=== PATIENT | male | born 1940 | race Caucasian/White ===

== ENCOUNTER 2016-06-21 14:29 | Inpatient (IN) | payer MEDICARE, BC ==
[2016-06-21] MEDS ORDERED: SODIUM CHLORIDE 0.9% 1,000 ML IV STA (14:51)
--- NOTE | 2016-06-21 14:53 | ED ---
General Adult HPI - General Chief complaint: Shortness of Breath Stated complaint: Dr Rutherford/SOB/Heart Pt Time Seen by Provider: 06/21/16 14:51 Source: patient, RN notes reviewed, old records reviewed Mode of arrival: ambulatory Limitations: no limitations - History of Present Illness Initial comments: This is a 75-year-old male here for evaluation of shortness of breath. Patient has history of A. fib, no specific heart history. Patient coming in with progressive and worsening exertional dyspnea. Patient has evolved to the point where he is sitting up and sleeping in his recliner. He was waking up in the middle night severely short of breath and gasping for air. Patient systems are much worse with activity either going up the stairs or doing or carotid salves including his normal daily tasks of firing. Patient denies any specific chest pain, currently in bed he feels comfortable [place] visibly short of breath. No recent travel [place] sick contacts no leg or calf pain. - Related Data Home Medications Medication Instructions Recorded Confirmed ALPRAZolam [Xanax] 0.25 mg PO TID PRN 08/16/14 06/21/16 Flecainide Acetate [Tambocor] 100 mg PO BID 08/16/14 06/21/16 Simvastatin [Zocor] 40 mg PO HS 08/16/14 06/21/16 Warfarin [Coumadin] 5 mg PO SUTUTHSA 08/16/14 06/21/16 Ascorbic Acid [Vitamin C] 500 mg PO DAILY 02/01/15 06/21/16 Ca/D3/Mag/Zinc/[place]/Terrence/Mgbor 1 tab PO DAILY 02/01/15 06/21/16 [Caltrate 600+D3+Min Chew Tab] Cyanocobalamin [Vitamin B-12] 2,500 mcg PO DAILY 02/01/15 06/21/16 Multivitamin [Men's Multi-Vitamin] 1 tab PO DAILY 02/01/15 06/21/16 Omeprazole [PriLOSEC] 20 mg PO DAILY 02/01/15 06/21/16 Enalapril Maleate [Vasotec] 20 mg PO BID 06/21/16 06/21/16 Fish Oil 1400mg 1,400 mg PO HS 06/21/16 06/21/16 Warfarin [Coumadin] 2.5 mg PO MOWEFR 06/21/16 06/21/16 Allergies Allergy/AdvReac Type Severity Reaction Status Date / Time No Known Allergies Allergy Verified 06/21/16 15:00 Review of Systems ROS Statement: Those systems with pertinent positive or pertinent negative responses have been documented in the HPI. ROS Other: All systems not noted in ROS Statement are negative. Past Medical History Past Medical History: Atrial Fibrillation, Cancer, Heart Failure, Hyperlipidemia , Hypertension Additional Past Medical History / Comment(s): SOB. PROSTATE CA, HORMONE & RADIATION TX. RENAL CALCULI. CATARACTS. History of Any Multi-Drug Resistant Organisms: None Reported Past Surgical History: Appendectomy, Cardiac Ablation, Heart Catheterization Additional Past Surgical History / Comment(s): CARDIOVERSION X 2. PARTIAL AMPUTATION OF RIGHT POINTER FINGER. Past Anesthesia/Blood Transfusion Reactions: No Reported Reaction Past Psychological History: Anxiety Smoking Status: Former smoker Past Alcohol Use History: None Reported Past Drug Use History: None Reported - Past Family History Father Family Medical History: CVA/TIA General Exam Limitations: no limitations General appearance: alert, in no apparent distress, anxious Head exam: Present: atraumatic, normocephalic, normal inspection Eye exam: Present: normal appearance, PERRL, EOMI. Absent: scleral icterus, conjunctival injection, periorbital swelling ENT exam: Present: normal exam, mucous membranes moist Neck exam: Present: normal inspection. Absent: tenderness, meningismus, lymphadenopathy Respiratory exam: Present: normal lung sounds bilaterally, rales, decreased breath sounds, prolonged expiratory. Absent: respiratory distress, rhonchi, stridor Cardiovascular Exam: Present: regular rate, tachycardia, irregular rhythm, normal heart sounds. Absent: systolic murmur, diastolic murmur, rubs, gallop, clicks GI/Abdominal exam: Present: soft, normal bowel sounds. Absent: distended, tenderness, guarding, rebound, rigid Extremities exam: Present: normal inspection, full ROM, normal capillary refill. Absent: tenderness, pedal edema, joint swelling, calf tenderness Back exam: Present: normal inspection Neurological exam: Present: alert, oriented X3, CN II-XII intact Psychiatric exam: Present: normal affect, normal mood Skin exam: Present: warm, dry, intact, normal color. Absent: rash Course Vital Signs 06/21/16 06/21/16 06/21/16 14:33 15:37 16:07 Temperature 97.4 F L Pulse Rate 111 H 110 H 98 Respiratory 20 18 20 Rate Blood Pressure 162/87 127/96 141/72 O2 Sat by Pulse 93 L 98 97 Oximetry 06/21/16 16:21 Temperature Pulse Rate 83 Respiratory 20 Rate Blood Pressure O2 Sat by Pulse Oximetry - Reevaluation(s) Reevaluation #1: 06/21/16 16:32 Patient didn't readily discuss to be in A. fib with RVR, improved with rate control EKG Findings - EKG Comments: EKG Findings:: EKG shows A. fib with RVR rate 113 QRS 156, QTC 540 Medical Decision Making - Medical Decision Making 75 male here with multiple medical coronaries coming with A. fib with RVR, CHF and progressive shortness of breath and exertional dyspnea, pleural effusion on x-ray. Mildly elevated troponin, patient be admitted for evaluation for cardiopulmonary status, trending of troponins, telemetry and cardiac evaluation - Lab Data Result diagrams: 06/21/16 14:54 06/21/16 14:54 Lab Results 06/21/16 06/21/16 06/21/16 Range/Units 14:54 14:54 14:54 WBC 10.3 (3.8-10.6) k/uL RBC 4.38 (4.30-5.90) m/uL Hgb 12.6 L (13.0-17.5) gm/dL Hct 39.6 (39.0-53.0) % MCV 90.3 (80.0-100.0) fL MCH 28.8 (25.0-35.0) pg MCHC 31.9 (31.0-37.0) g/dL RDW 13.9 (11.5-15.5) % Plt Count 301 (150-450) k/uL Neutrophils % 80 % Lymphocytes % 9 % Monocytes % 9 % Eosinophils % 0 % Basophils % 0 % Neutrophils # 8.2 H (1.3-7.7) k/uL Lymphocytes # 0.9 L (1.0-4.8) k/uL Monocytes # 0.9 (0-1.0) k/uL Eosinophils # 0.0 (0-0.7) k/uL Basophils # 0.0 (0-0.2) k/uL Hypochromasia Slight Sodium 142 (137-145) mmol/L Potassium 4.5 (3.5-5.1) mmol/L Chloride 107 (98-107) mmol/L Carbon Dioxide 21 L (22-30) mmol/L Anion Gap 14 mmol/L BUN 25 H (9-20) mg/dL Creatinine 0.93 (0.66-1.25) mg/dL Est GFR (MDRD) Af Amer >60 (>60 ml/min/1.73 sqM) Est GFR (MDRD) Non-Af >60 (>60 ml/min/1.73 sqM) Glucose 103 H (74-99) mg/dL Calcium 9.3 (8.4-10.2) mg/dL Phosphorus 3.7 (2.5-4.5) mg/dL Magnesium 2.0 (1.6-2.3) mg/dL Total Bilirubin 1.2 (0.2-1.3) mg/dL AST 41 (17-59) U/L ALT 50 (21-72) U/L Alkaline Phosphatase 72 (38-126) U/L Total Creatine Kinase 77 (55-170) U/L CK-MB (CK-2) 2.8 H* (0.0-2.4) ng/mL CK-MB (CK-2) Rel Index 3.6 Troponin I 0.046 H* (0.000-0.034) ng/mL NT-Pro-B Natriuret Pep pg/mL Total Protein 7.2 (6.3-8.2) g/dL Albumin 3.9 (3.5-5.0) g/dL 06/21/16 Range/Units 14:54 WBC (3.8-10.6) k/uL RBC (4.30-5.90) m/uL Hgb (13.0-17.5) gm/dL Hct (39.0-53.0) % MCV (80.0-100.0) fL MCH (25.0-35.0) pg MCHC (31.0-37.0) g/dL RDW (11.5-15.5) % Plt Count (150-450) k/uL Neutrophils % % Lymphocytes % % Monocytes % % Eosinophils % % Basophils % % Neutrophils # (1.3-7.7) k/uL Lymphocytes # (1.0-4.8) k/uL Monocytes # (0-1.0) k/uL Eosinophils # (0-0.7) k/uL Basophils # (0-0.2) k/uL Hypochromasia Sodium (137-145) mmol/L Potassium (3.5-5.1) mmol/L Chloride (98-107) mmol/L Carbon Dioxide (22-30) mmol/L Anion Gap mmol/L BUN (9-20) mg/dL Creatinine (0.66-1.25) mg/dL Est GFR (MDRD) Af Amer (>60 ml/min/1.73 sqM) Est GFR (MDRD) Non-Af (>60 ml/min/1.73 sqM) Glucose (74-99) mg/dL Calcium (8.4-10.2) mg/dL Phosphorus (2.5-4.5) mg/dL Magnesium (1.6-2.3) mg/dL Total Bilirubin (0.2-1.3) mg/dL AST (17-59) U/L ALT (21-72) U/L Alkaline Phosphatase (38-126) U/L Total Creatine Kinase (55-170) U/L CK-MB (CK-2) (0.0-2.4) ng/mL CK-MB (CK-2) Rel Index Troponin I (0.000-0.034) ng/mL NT-Pro-B Natriuret Pep 7620 pg/mL Total Protein (6.3-8.2) g/dL Albumin (3.5-5.0) g/dL - Radiology Data Radiology results: report reviewed (Chest x-ray 2 view does show positive pleural effusion), image reviewed Critical Care Time Critical Care Time: Yes Total Critical Care Time: 31 Disposition Clinical Impression: Congestive heart failure, Acute pulmonary edema, Atrial fibrillation with RVR Disposition: ADMITTED IP TO THIS HOSP Condition: Fair Referrals: Sylvester Mckeon MD [Primary Care Provider] - 1-2 days
[2016-06-21 15:03] LABS: Basophils % (A) 0 %; CH 28.7; Eosinophils % (A) 0 %; HCT 39.6 % (39.0-53.0); HDW 3.01; HGB 12.6 gm/dL (13.0-17.5); Hypochromasia Slight; Luc % (Auto) 2; Lymphocytes # (A) 0.9 k/uL (1.0-4.8); Lymphocytes % (A) 9 %; MCH 28.8 pg (25.0-35.0); MCHC 31.9 g/dL (31.0-37.0); MCV 90.3 fL (80.0-100.0); Mean Platelet Volume 6.9; Monocytes # (A) 0.9 k/uL (0-1.0); Monocytes % (A) 9 %; Neutrophils # (A) 8.2 k/uL (1.3-7.7); Neutrophils % (A) 80 %; RBC 4.38 m/uL (4.30-5.90); RDW 13.9 % (11.5-15.5); WBC 10.3 k/uL (3.8-10.6); WBC (Perox) 10.54
[2016-06-21 15:16] LABS: INR 2.5 (<1.1); Partial Thromboplastin Time 27.3 sec (22.0-30.0); Prothrombin Time 24.1 sec (9.0-12.0)
--- NOTE | 2016-06-21 15:16 | XR ---
EXAMINATION TYPE: XR chest 2V DATE OF EXAM: 06/21/2016 3:10 PM COMPARISON: 03/24/2016 HISTORY: Weakness TECHNIQUE: Frontal and lateral views of the chest are obtained. FINDINGS: There is no heart failure nor confluent pneumonic infiltrate. There is mild coarsening of interstitial markings. There is old right posterior lateral rib fracture. There is very slight blunti ng of right costophrenic angle. IMPRESSION: Pulmonary fibrotic mild changes. There is a new small right pleural effusion compared to old exam. No gross heart failure.
[2016-06-21 15:18] LABS: ALT 50 U/L (21-72); AST 41 U/L (17-59); Alkaline Phosphatase 72 U/L (38-126); Anion Gap 14 mmol/L; Blood Urea Nitrogen 25 mg/dL (9-20); Calcium 9.3 mg/dL (8.4-10.2); Carbon Dioxide 21 mmol/L (22-30); Chloride 107 mmol/L (98-107); Glucose 103 mg/dL (74-99); Non-African American GFR(MDRD) >60 (>60 ml/min/1.73 sqM); Phosphorous 3.7 mg/dL (2.5-4.5); Potassium 4.5 mmol/L (3.5-5.1); Sodium 142 mmol/L (137-145); Total Bilirubin 1.2 mg/dL (0.2-1.3); Total Protein 7.2 g/dL (6.3-8.2)
[2016-06-21 15:50] LABS: Creatine Kinase MB 2.8 ng/mL (0.0-2.4); Troponin I 0.046 ng/mL (0.000-0.034)
[2016-06-21] MEDS ORDERED: DILTIAZEM 5 MG/ML 5 ML VIAL IVP STA (16:03)
[2016-06-21] MEDS ORDERED: FUROSEMIDE 10 MG/ML 4 ML VIAL IV STA (16:19)
[2016-06-21] MEDS ORDERED: ASPIRIN 325 MG TAB PO STA (16:19)
[2016-06-21] MEDS ORDERED: SODIUM CHLORIDE 0.9% 1,000 ML IV SCH (16:30)
[2016-06-21] MEDS ORDERED: WARFARIN 5 MG TAB PO SCH (18:00)
[2016-06-21 18:03] LABS: Appearance,Urine Clear (Clear); Bilirubin,Urine Negative (Negative); Glucose,Urine (UA) Negative (Negative); Ketones,Urine Trace (Negative); Leukocyte Esterase,Urine Negative (Negative); Nitrite,Urine Negative (Negative); PH, Urine 5.5 (5.0-8.0); Protein,Urine Negative (Negative); UA Billing (MACRO vs. MICRO) CHEM; Urobilinogen,Urine <2.0 mg/dL (<2.0)
[2016-06-21] MEDS: METOPROLOL TARTRATE 25 MG TAB PO SCH (20:19)
[2016-06-21] MEDS: FLECAINIDE 50 MG TAB PO SCH (20:19)
[2016-06-21] MEDS: ATORVASTATIN 20 MG TAB PO SCH (20:19)
[2016-06-21] MEDS: PSYLLIUM HUSK 100% 6 GM PACKET PO SCH (20:29)
[2016-06-21 21:25] LABS: Troponin I 0.057 ng/mL (0.000-0.034)
--- NOTE | 2016-06-21 21:56 | P.HPIM ---
History of Present Illness Chief complaint: Shortness of breath. History of present illness: The patient is a 75-year-old gentleman who presented today to the emergency room with increasing shortness of breath. He states it's been gradually getting worse for a while but over the past few days it's been becoming more problematic. Just getting up walking to his mailbox causing extreme shortness of breath along with ambulating through the house. He is having paroxysmal nocturnal dyspnea and orthopnea at night to the point where he got a recliner to sleep and so that he can breathe at night. He has denied any chest pain fever or chills or cough. Past medical history: Patient is followed by cardiology. Patient does have a history of paroxysmal atrial fibrillation and is on anticoagulation. Apparently a history of sick sinus syndrome. He does also have a history of mild to moderate aortic stenosis on previous echocardiograms. Echocardiogram from 2014 at least revealed a aortic stenosis gradient of 20 mm mercury with left atrial enlargement and ejection fraction of 60%. He has had previous cardioversion from atrial flutter to sinus rhythm and also has had ablation therapy I believe more recently. He has had a previous cardiac catheterization although I do not have the results but there is documentation for mild coronary artery disease and he has carotid duplex per cardiology on a regular basis for which she has right internal carotid artery stenosis. History of hypertension and hyperlipidemia. History of polyarthritis degenerative joint disease. History of cancer of the prostate followed by local urology. History of previous smoking and element of COPD. Previous surgical history: include finger surgery with amputation of the right index finger and appendectomy. Medications: No known ALLERGIES Home medications include his Coumadin 2.5 mg on Wednesdays and Fridays and 5 mg on all other days. Simvastatin 40 mg at at bedtime. Omeprazole 20 mg daily. Tambocor 100 mg twice a day Fish oil 1400 mg at at bedtime Enalapril 20 mg twice a day Vitamin B12 2500 g daily Calcium and vitamin D daily Xanax 0.25 3 times a day when necessary. Review of systems: Patient denies any unusual visual disturbances or headaches. No fever or chills or cough. No chest pain. No nausea vomiting or diarrhea. No new blood in his stool. Patient takes Metamucil with good results. No urinary symptomatology no hematuria. Patient has had some increase of bilateral lower leg edema especially in the calf muscle area. He states is improved since being in the hospital today. Family history: Patient has had a sister who of lung cancer. A brother with esophageal cancer. And a mother with pancreatic cancer. There is also history of coronary artery disease in the family. Social history: Patient is a former smoker. Denies any excessive alcohol usage. Patient does work as a [employer] but is mostly retired. Lives with his locally. Physical examination: Patient is sitting up in bed alert and oriented in no acute distress. Vital signs reveal a temperature of 97.3 and a pulse of 55 and slightly irregular. Pulse was up to 111 on presentation. Respirations are down to 16 and nonlabored. Blood pressure is 114/77 and he is 98% saturated on room air. Head and neck exam is unremarkable. Extraocular movements are intact. No carotid bruits or adenopathy. No definite JVD noted at this time. No thyromegaly. Lungs are generally clear although diminished at bases with scattered rales at the bases. Heart tones are regular without definitive murmur or rub is appreciated. Abdomen is obese but soft and nontender without organomegaly or masses. Rectal and scrotal exam deferred. Extremities do not reveal any pitting edema at this time. Neurologic exam reveals him to be alert and oriented in no acute distress. Cranial nerves are intact. No focal weakness noted. Laboratory: White count is 10.3 with a hemoglobin 12.6 and a platelet count of 301. INR is 2.5. Sodium is 142 with a potassium 4.5. BUN of 25 with creatinine 0.93 given him a GFR of greater than 60. Liver function tests were good. Troponin initially 0.046 going up to 0.057 on second determination. CK total was 77. Pro BNP 7620. Urinalysis clear. Chest x-ray revealed: some pulmonary fibrotic changes. Small right pleural effusion was noted. Possible mild but no gross heart failure. EKG on admission: Showed atrial fibrillation with a rapid ventricular response associated with a left anterior fascicular block and right bundle branch block. Possible septal infarct. Impressions: 1. Acute on chronic congestive heart failure with diastolic dysfunction associated also with atrial fibrillation and a rapid ventricular response on presentation. 2. History some element of aortic stenosis and need to rule out any contribution to #1 from valvular heart disease or atherosclerotic heart disease. 3. History of paroxysmal atrial fibrillation. Post ablation therapy. 4. History of sick sinus syndrome 5. History of hypertension 6. Hyperlipidemia 7. Previous smoking history/history COPD. 8. History of prostate cancer. 9. History of appendectomy. 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 Plans: IV Lasix has been initiated. Patient will have echocardiogram performed. Follow-up electrolytes to be done. Continue with Coumadin and other home medications at this time. Consult for cardiology to evaluate. Further recommendations and treatment pending clinical response and results of above is discussed with patient at bedside this evening. Past Medical History Past Medical History: Atrial Fibrillation, Cancer, Heart Failure, Hyperlipidemia , Hypertension Additional Past Medical History / Comment(s): SOB. PROSTATE CA, HORMONE & RADIATION TX. RENAL CALCULI. CATARACTS. History of Any Multi-Drug Resistant Organisms: None Reported Past Surgical History: Appendectomy, Cardiac Ablation, Heart Catheterization Additional Past Surgical History / Comment(s): CARDIOVERSION X 3. PARTIAL AMPUTATION OF RIGHT POINTER FINGER; colonoscpy Past Anesthesia/Blood Transfusion Reactions: No Reported Reaction Past Psychological History: Anxiety Smoking Status: Former smoker Past Alcohol Use History: None Reported Past Drug Use History: None Reported - Past Family History Brother(s) Additional Family Medical History / Comment(s): espohogeal ca Mother Additional Family Medical History / Comment(s): pancreatic ca Sister(s) Additional Family Medical History / Comment(s): sister lung ca Father Family Medical History: CVA/TIA Medications and Allergies Home Medications Medication Instructions Recorded Confirmed Type ALPRAZolam [Xanax] 0.25 mg PO TID PRN 08/16/14 06/21/16 History Flecainide Acetate [Tambocor] 100 mg PO BID 08/16/14 06/21/16 History Simvastatin [Zocor] 40 mg PO HS 08/16/14 06/21/16 History Warfarin [Coumadin] 5 mg PO SUTUTHSA 08/16/14 06/21/16 History Ascorbic Acid [Vitamin C] 500 mg PO DAILY 02/01/15 06/21/16 History Ca/D3/Mag/Zinc/[place]/Mgbor 1 tab PO DAILY 02/01/15 06/21/16 History [Caltrate 600+D3+Min Chew Tab] Cyanocobalamin [Vitamin B-12] 2,500 mcg PO DAILY 02/01/15 06/21/16 History Multivitamin [Men's Multi-Vitamin] 1 tab PO DAILY 02/01/15 06/21/16 History Omeprazole [PriLOSEC] 20 mg PO DAILY 02/01/15 06/21/16 History Enalapril Maleate [Vasotec] 20 mg PO BID 06/21/16 06/21/16 History Fish Oil 1400mg 1,400 mg PO HS 06/21/16 06/21/16 History Warfarin [Coumadin] 2.5 mg PO MOWEFR 06/21/16 06/21/16 History Allergies Allergy/AdvReac Type Severity Reaction Status Date / Time No Known Allergies Allergy Verified 06/21/16 15:00 Physical Exam Vitals: Vital Signs Temp Pulse Pulse Resp BP BP Pulse Ox 06/21/16 20:13 97.3 F L 55 L 16 114/77 98 06/21/16 18:22 97.2 F L 91 18 139/89 96 06/21/16 17:00 98 F 85 20 133/84 97 06/21/16 16:21 83 20 Intake and Output 06/21/16 06/21/16 06/21/16 06:59 14:59 22:59 Intake Total 318 Output Total 850 Balance -532 Intake: Oral 318 Output: Urine 850 Other: Voiding Method Toilet Urinal Weight 99.337 kg Patient Weight 06/22/16 06:59 Weight 99.337 kg Results CBC & Chem 7: 06/21/16 14:54 06/21/16 14:54 Labs: Abnormal Lab Results - Last 24 Hours (Table) 06/21/16 Range/Units 17:30 Urine Ketones Trace H (Negative) Thrombosis Risk Factor Assmnt - Choose All That Apply Each Factor Represents 1 point: Heart failure (<1month), Obesity (BMI >25) Each Risk Factor Represents 2 Points: Age 61-74 years Thrombosis Risk Factor Assessment Total Risk Factor Score: 4 Thrombosis Risk Factor Assessment Level: Moderate Risk
[2016-06-21] MEDS: ALPRAZolam 0.25 MG TAB PO PRN (23:01)
[2016-06-22 03:20] LABS: Anion Gap 10 mmol/L; Blood Urea Nitrogen 29 mg/dL (9-20); Calcium 9.1 mg/dL (8.4-10.2); Carbon Dioxide 27 mmol/L (22-30); Chloride 106 mmol/L (98-107); Glucose 113 mg/dL (74-99); Non-African American GFR(MDRD) 59 (>60 ml/min/1.73 sqM); Potassium 4.7 mmol/L (3.5-5.1); Sodium 143 mmol/L (137-145)
[2016-06-22 03:43] LABS: Creatine Kinase MB 1.4 ng/mL (0.0-2.4)
[2016-06-22 03:54] LABS: Troponin I 0.054 ng/mL (0.000-0.034)
[2016-06-22] MEDS ORDERED: FUROSEMIDE 10 MG/ML 4 ML VIAL IV SCH ×2 (06:00→21:00)
[2016-06-22 06:18] LABS: Glucose,Whole Blood 115 mg/dL (75-99)
[2016-06-22] MEDS: PANTOPRAZOLE 40 MG TABLET PO SCH (06:57)
--- NOTE | 2016-06-22 08:00 | P.PN ---
Progress Note - Text The patient is a 75-year-old gentleman who presented to the emergency room yesterday with increasing shortness of breath. He was found to be in acute on chronic congestive heart failure with history of previous diastolic dysfunction and also associated with atrial fibrillation and a rapid ventricular response on presentation. Patient has received IV Lasix and has had improvement in his symptomatology. Decrease shortness of breath and edema. Present vital signs reveal temperature 90.7 with a pulse of 86 irregular and respirations 16. Blood pressures have been down in the 90s with 94/70 and he is 96% saturated on room air. Head and neck exam unremarkable. Lungs are generally clear without wheezing or rales this morning. Abdomen obese but nontender. No edema. No focal neurological changes. Labs Sodium is 143 with a potassium 4.7. BUN of 29 with creatinine of 1.2. A GFR of 59. Blood sugars 113. Troponins elevated up to 0.057. TSH is mildly depressed 0.452. Patient did have about 3 L urinary output since presentation. Impressions and plans: Have decreased Lasix to 20 mg orally twice a day. Patient is having an echocardiogram. Consultation with cardiology today. Further recommendations pending clinical response and results of above.
[2016-06-22] MEDS: METOPROLOL TARTRATE 25 MG TAB PO SCH ×2 (08:27→20:29)
[2016-06-22] MEDS: FLECAINIDE 50 MG TAB PO SCH ×2 (08:27→20:30)
--- NOTE | 2016-06-22 08:37 | P.CRDCN ---
History of Present Illness Consult date: 06/22/16 Requesting physician: Sylvester Mckeon Consult reason: atrial fibrillation Chief complaint: Shortness of breath History of present illness: This is a pleasant 75-year-old gentleman who follows regularly with Dr. Karley Storm in the office. He has a known history of paroxysmal atrial fibrillation, hypertension, hyperlipidemia, patient also has had 2 prior cardioversions performed in the past, most recent one was performed in February 2015. He presents to the hospital with symptoms of exertional shortness of breath for the past couple of weeks, he also states that he has noticed some increase in his abdominal girth and bilateral leg swelling in the past few days. Positive dry hacking cough. Denies fever or chills. On presentation here patient was found to be in atrial fibrillation with a rapid ventricular response, right bundle branch block pattern. Chest x-ray revealed pulmonary fibrotic changes with a new small right pleural effusion. Laboratory data was reviewed, BNP level 7620. Troponin 0.046, 0.057, 0.054. Magnesium level II.0, potassium 4.5, free T4 1 0.4 and TSH 0.45. CBC normal. Patient does take Coumadin for anticoagulation, INR 2.5. He was initiated on IV Lasix in the emergency room, weight is down 1 kg from admission. At the time of my examination this morning, patient is lying flat in bed, denies any shortness of breath, continues to be in atrial fibrillation with a heart rate in the 80s. Past Medical History Past Medical History: Atrial Fibrillation, Cancer, Heart Failure, Hyperlipidemia , Hypertension Additional Past Medical History / Comment(s): SOB. PROSTATE CA, HORMONE & RADIATION TX. RENAL CALCULI. CATARACTS. History of Any Multi-Drug Resistant Organisms: None Reported Past Surgical History: Appendectomy, Cardiac Ablation, Heart Catheterization Additional Past Surgical History / Comment(s): CARDIOVERSION X 3. PARTIAL AMPUTATION OF RIGHT POINTER FINGER; colonoscpy Past Anesthesia/Blood Transfusion Reactions: No Reported Reaction Past Psychological History: Anxiety Smoking Status: Former smoker Past Alcohol Use History: None Reported Past Drug Use History: None Reported - Past Family History Brother(s) Additional Family Medical History / Comment(s): espohogeal ca Mother Additional Family Medical History / Comment(s): pancreatic ca Sister(s) Additional Family Medical History / Comment(s): sister lung ca Father Family Medical History: CVA/TIA Medications and Allergies Home Medications Medication Instructions Recorded Confirmed Type ALPRAZolam [Xanax] 0.25 mg PO TID PRN 08/16/14 06/21/16 History Flecainide Acetate [Tambocor] 100 mg PO BID 08/16/14 06/21/16 History Simvastatin [Zocor] 40 mg PO HS 08/16/14 06/21/16 History Warfarin [Coumadin] 5 mg PO SUTUTHSA 08/16/14 06/21/16 History Ascorbic Acid [Vitamin C] 500 mg PO DAILY 02/01/15 06/21/16 History Ca/D3/Mag/Zinc/[place]rence/Mgbor 1 tab PO DAILY 02/01/15 06/21/16 History [Caltrate 600+D3+Min Chew Tab] Cyanocobalamin [Vitamin B-12] 2,500 mcg PO DAILY 02/01/15 06/21/16 History Multivitamin [Men's Multi-Vitamin] 1 tab PO DAILY 02/01/15 06/21/16 History Omeprazole [PriLOSEC] 20 mg PO DAILY 02/01/15 06/21/16 History Fish Oil 1400mg 1,400 mg PO HS 06/21/16 06/21/16 History Warfarin [Coumadin] 2.5 mg PO MOWEFR 06/21/16 06/21/16 History Enalapril Maleate [Enalapril 10 mg PO DAILY 06/22/16 06/22/16 History Maleate] Allergies Allergy/AdvReac Type Severity Reaction Status Date / Time No Known Allergies Allergy Verified 06/21/16 15:00 Physical Exam Vitals: Vital Signs Temp Pulse Pulse Resp BP BP Pulse Ox 06/22/16 04:11 97 F L 86 16 94/70 96 06/22/16 00:00 62 16 93/69 100 06/21/16 20:13 97.3 F L 55 L 16 114/77 98 06/21/16 18:22 97.2 F L 91 18 139/89 96 06/21/16 17:00 98 F 85 20 133/84 97 06/21/16 16:21 83 20 Intake and Output 06/21/16 06/22/16 06/22/16 22:59 06:59 14:59 Intake Total 318 500 Output Total 1250 1000 700 Balance -932 -500 -700 Intake: Oral 318 500 Output: Urine 1250 1000 700 Other: Voiding Method Toilet Toilet Urinal Urinal Weight 99.337 kg 98 kg PHYSICAL EXAMINATION: HEENT: Head is atraumatic, normocephalic. Pupils equal, round. Neck is supple. There is no elevated jugular venous pressure. HEART EXAMINATION: Heart S1 and S2 irregular irregular systolic ejection murmur is heard. CHEST EXAMINATION: Lungs Reveal some fine expiratory wheezes with mild diminished air entry to the bases. ABDOMEN: Soft, nontender. Bowel sounds are heard. No organomegaly noted. EXTREMITIES: 2+ peripheral pulses with trace evidence of peripheral edema and no calf tenderness noted. NEUROLOGIC patient is awake, alert and oriented -3. . Results 06/21/16 14:54 06/23/16 06:40 Cardiac Enzymes 06/21/16 06/22/16 Range/Units 20:34 02:45 CK-MB (CK-2) 2.0 1.4 (0.0-2.4) ng/mL Troponin I 0.057 H* 0.054 H* (0.000-0.034) ng/mL Comprehensive Metabolic Panel 06/22/16 Range/Units 02:45 Sodium 143 (137-145) mmol/L Potassium 4.7 (3.5-5.1) mmol/L Chloride 106 (98-107) mmol/L Carbon Dioxide 27 (22-30) mmol/L BUN 29 H (9-20) mg/dL Creatinine 1.20 (0.66-1.25) mg/dL Glucose 113 H (74-99) mg/dL Calcium 9.1 (8.4-10.2) mg/dL Current Medications Generic Name Dose Route Start Last Admin Trade Name Freq PRN Reason Stop Dose Admin Alprazolam 0.25 mg 06/21/16 18:04 06/21/16 23:01 Xanax PO 0.25 mg TID PRN Administration Anxiety Aspirin 325 mg 06/22/16 16:00 Aspirin PO DAILY ANALY Atorvastatin Calcium 20 mg 06/21/16 21:00 06/21/16 20:19 Lipitor PO 20 mg HS ANALY Administration Flecainide Acetate 100 mg 06/21/16 21:00 06/21/16 20:19 Tambocor PO 100 mg BID ANALY Administration Furosemide 20 mg 06/22/16 09:00 Lasix PO BID@0900,1600 [facility] Sodium Chloride 1,000 mls @ 20 mls/hr 06/21/16 16:30 06/21/16 17:57 Saline 0.9% IV Not Given .Q24H [facility] Lisinopril 80 mg 06/22/16 09:00 Zestril PO DAILY [facility] Metoprolol Tartrate 25 mg 06/21/16 21:00 06/21/16 20:19 Lopressor PO 25 mg BID ANALY Administration Pantoprazole Sodium 40 mg 06/22/16 07:30 06/22/16 06:57 Protonix PO 40 mg [id number] ANALY Administration Psyllium Hydrophilic Mucilloid 6 gm 06/21/16 21:00 06/21/16 20:29 Metamucil PO 6 gm HS ANALY Administration Warfarin Sodium 2.5 mg 06/22/16 18:00 Coumadin PO MOWEFR [facility] Warfarin Sodium 5 mg 06/21/16 18:00 06/21/16 18:41 Coumadin PO 5 mg SUTUTHSA ANALY Administration Intake and Output 06/21/16 06/22/16 06/22/16 22:59 06:59 14:59 Intake Total 318 500 Output Total 1250 1000 700 Balance -932 -500 -700 Intake: Oral 318 500 Output: Urine 1250 1000 700 Other: Voiding Method Toilet Toilet Urinal Urinal Weight 99.337 kg 98 kg 06/22/16 02:45 EKG Interpretations (text) EKG shows atrial fibrillation with a right bundle branch block pattern Assessment and Plan Plan: Assessment and plan #1 atrial fibrillation with rapid ventricular response #2 history of paroxysmal atrial fibrillation with prior cardioversions, on Coumadin for anticoagulation, INR 2.5 #3 diastolic congestive heart failure acute on chronic #4 hypertension Number 5 hyperlipidemia #6 moderate aortic stenosis, most recent echocardiogram was performed in December 2014 which revealed mild to moderate aortic stenosis with an ejection fraction of 60%. Plan We will obtain an echocardiogram with Doppler study. Decrease aspirin 81 mg daily. Continue flecainide 100 mg by mouth twice a day along with metoprolol tartrate 25 mg one by mouth twice a day. Continue IV Lasix. He scheduled to undergo a LUISA and cardioversion. The risks and benefits were explained to the patient in detail. Further recommendations to follow. DNP note has been reviewed, I agree with a documented findings and plan of care. Patient was seen and examined.
[2016-06-22] MEDS ORDERED: LISINOPRIL 20 MG TAB PO SCH ×2 (09:00)
[2016-06-22] MEDS ORDERED: FUROSEMIDE 20 MG TAB PO SCH (09:00)
--- NOTE | 2016-06-22 09:50 | ECHOF ---
Referral Reason:CHF MEASUREMENTS -------- HEIGHT: 180.3 cm WEIGHT: 98.0 kg BP: IVSd: 1.3 cm (0.6 - 1.1) LVIDd: 5.8 cm (3.9 - 5.3) LVPWd: 1.3 cm (0.6 - 1.1) IVSs: 1.2 cm LVIDs: 5.5 cm LVPWs: 1.6 cm LAESV Index (A-L): 47.35 ml/m Ao Diam: 3.1 cm (2.0 - 3.7) AV Cusp: 1.2 cm (1.5 - 2.6) LA Diam: 3.9 cm (2.7 - 3.8) MV EXCURSION: 18.438 mm (> 18.000) MV EF SLOPE: 95 mm/s (70 - 150) EPSS: 2.0 cm AV maxP.09 mmHg AV meanP.07 mmHg AR PHT: 348 ms RAP: 5.00 mmHg RVSP: 36.33 mmHg FINDINGS -------- Atrial fibrillation. This was a technically good study. There is mild concentric left ventricular hypertrophy. There is severe global hypokinesis of LV . Overall left ventricular systolic function is moderately impaired with, an EF between 35 - 40 %. The right ventricle is normal in size and function. LA is severely dilated >40 ml/m2 The right atrium is normal in size. There is mild aortic regurgitation. There is moderate aortic stenosis present. Peak/mean gradient across the Aortic Valve is 35.09mmHg / 20.07mmHg. The mitral valve leaflets are mildly thickened. Moderate mitral regurgitation is present. Moderate tricuspid regurgitation present. The right ventricular systolic pressure, as measured by Doppler, is 36.33mmHg. Pulmonic valve appears structurally normal. The pericardium is normal. CONCLUSIONS -------- 1. Atrial fibrillation. 2. There is moderate aortic stenosis present. 3. Peak/mean gradient across the Aortic Valve is 35.09mmHg / 20.07mmHg. 4. The mitral valve leaflets are mildly thickened. 5. Moderate mitral regurgitation is present. 6. Moderate tricuspid regurgitation present. 7. The right ventricular systolic pressure, as measured by Doppler, is 36.33mmHg. 8. Pulmonic valve appears structurally normal. 9. The pericardium is normal. 10. This was a technically good study. 11. There is mild concentric left ventricular hypertrophy. 12. There is severe global hypokinesis of LV . 13. Overall left ventricular systolic function is moderately impaired with, an EF between 35 - 40 %. 14. The right ventricle is normal in size and function. 15. LA is severely dilated >40 ml/m2 16. The right atrium is normal in size. 17. There is mild aortic regurgitation. METALSMITH HELPER: Taryn Castro RDCS
[2016-06-22] MEDS: FUROSEMIDE 10 MG/ML 4 ML VIAL IV SCH ×2 (10:12→20:31)
[2016-06-22] MEDS: LISINOPRIL 10 MG TAB PO SCH (10:18)
[2016-06-22] MEDS: SODIUM CHLORIDE 0.9% 1,000 ML IV SCH (15:29)
[2016-06-22] MEDS ORDERED: ASPIRIN 325 MG TAB PO SCH (16:00)
[2016-06-22] MEDS ORDERED: WARFARIN 2.5 MG TAB PO SCH (18:00)
[2016-06-22] MEDS: ATORVASTATIN 20 MG TAB PO SCH (20:29)
[2016-06-22] MEDS: PSYLLIUM HUSK 100% 6 GM PACKET PO SCH (20:31)
[2016-06-23] MEDS: METOPROLOL TARTRATE 25 MG TAB PO SCH (06:32)
[2016-06-23] MEDS: LISINOPRIL 10 MG TAB PO SCH (06:32)
[2016-06-23] MEDS: PANTOPRAZOLE 40 MG TABLET PO SCH (06:32)
[2016-06-23] MEDS: FLECAINIDE 50 MG TAB PO SCH ×2 (06:32→21:17)
[2016-06-23] MEDS: ASPIRIN 81 MG CHEW PO SCH (06:32)
[2016-06-23 07:13] LABS: INR 3.5 (<1.1); Prothrombin Time 34.3 sec (9.0-12.0)
[2016-06-23 07:19] LABS: Anion Gap 12 mmol/L; Blood Urea Nitrogen 28 mg/dL (9-20); Calcium 9.2 mg/dL (8.4-10.2); Carbon Dioxide 29 mmol/L (22-30); Chloride 103 mmol/L (98-107); Glucose 99 mg/dL (74-99); Non-African American GFR(MDRD) >60 (>60 ml/min/1.73 sqM); Potassium 4.4 mmol/L (3.5-5.1); Sodium 144 mmol/L (137-145)
--- NOTE | 2016-06-23 07:56 | P.PN ---
Progress Note - Text Patient is a 75 and gentleman who presented to the emergency room 2 days previous with increasing shortness of breath and was found to be in acute on chronic congestive heart failure with diastolic dysfunction and atrial fibrillation and rapid ventricular response. He has had some diuresis and improvement in his symptoms with IV Lasix. This morning he denies any shortness of breath or chest pain. He does have a history of valvular heart disease and has been followed as an outpatient. Vital signs reveal temperature of 97 with a pulse of 78 and respirations 18. Blood pressure 135/75 and he is 96% saturated on room air. Lung and heart examination is clear. Abdomen is nontender. No unusual edema at this time. No neurological deficits. Input and output: He is basically has had negative outputs during his hospitalization and his weight has dropped a little over kilogram. Last shift he put out a liter of fluid. Labs reveal unremarkable electrolytes this morning with a potassium 4.4. BUN is 28 with creatinine 1.05 given him a GFR greater than 60. INR though was slightly elevated at 3.5. Impressions and plans: There is moderate aortic stenosis on echocardiogram. With ejection fraction of 35-40%. Cardiology is planning further evaluation today with transesophageal echo. Await results of their evaluation and further recommendations. This was discussed with patient at bedside. We'll hold Coumadin today and repeat INR in the morning.
[2016-06-23] MEDS ORDERED: LIDOCAINE 1% INJ 10MG/ML (20 ML MDV) ONE (08:37)
[2016-06-23] MEDS ORDERED: PROPOFOL 10 MG/ML 20 ML VIAL IV ONE (08:37)
[2016-06-23] MEDS ORDERED: ePHEDrine 50 MG/ML 1 ML AMP ONE (08:37)
[2016-06-23] MEDS: BENZOCAINE SPRAY 100 APPLIC/CAN TOPICAL ONE ×3 (08:42→09:13)
[2016-06-23] MEDS ORDERED: IV FLUID CONTINUATION 1,000 ML IV ONE ×2 (08:47)
[2016-06-23] MEDS ORDERED: LISINOPRIL 10 MG TAB PO SCH (09:00)
[2016-06-23] MEDS: FUROSEMIDE 10 MG/ML 4 ML VIAL IV SCH ×2 (09:44→21:18)
--- NOTE | 2016-06-23 09:55 | CE ---
DATE OF SERVICE: 06/23/2016 PROCEDURE PERFORMED: Cardioversion INDICATION: This is a pleasant 75-year-old gentleman who sees Dr. Shane Storm as an outpatient, who presented to the hospital with A. fib with RVR and underwent a LUISA which showed no evidence of left atrial appendage thrombus. COMPLICATIONS: None. LEVEL OF SEDATION: Moderate. PROCEDURE DESCRIPTION: After transesophageal echocardiogram was performed and left atrial appendage thrombus was ruled out, we proceeded to do the cardioversion. The patient cardioverted from A. fib to sinus mechanism using 360 joules with a third attempt. CONCLUSION: Successful cardioversion of atrial fibrillation into normal mechanism using 360 joules at a third attempt. POSTPROCEDURE MANAGEMENT: 1. The patient was noted to be bradycardic after the cardioversion. 2. I am going to decrease the dose of metoprolol to 12.5 mg p.o. b.i.d.
--- NOTE | 2016-06-23 10:03 | ECHOT ---
DATE OF SERVICE: 06/23/2016 PERFORMING PHYSICIAN: Alfa Quinones MD, roller skates assembler. PROCEDURE PERFORMED: Transesophageal echocardiogram. INDICATIONS: This is a pleasant 75-year-old gentleman who sees Dr. Shane Storm as an outpatient, who was admitted to the hospital with A. fib with RVR. The patient every time he goes to A. fib he goes to cardiomyopathy. The transesophageal echocardiogram to rule out any left atrial appendage thrombus before cardioversion. COMPLICATIONS: None. LEVEL OF SEDATION: Moderate. PROCEDURE DESCRIPTION: After obtaining an informed consent, the patient was brought to the transesophageal echocardiogram suite. The pulse oximetry and heart rate monitors were attached to the patient. The patient was turned in the left lateral position. Subsequently, deep sedation was performed with anesthesiologist in the room and using propofol. Subsequently, the transesophageal echocardiogram probe was advanced to the mid esophagus, where a 2-D echocardiogram images as well as color Doppler images of various cardiac structures were obtained. Particular attention was paid to the left atrial appendage. Subsequently, the transesophageal echocardiogram probe was advanced to the stomach when flexed to obtain transgastric views. Then it was brought to the ( ) position in the mid esophagus, The procedure was completed without any complication. FINDINGS: The left ventricle seems to be dilated. The left ventricular systolic function is severely impaired with an ejection fraction about 20% with global hypokinesia. The right ventricle appeared to be dilated as well. The left atrium and right atrium are mildly dilated. Left atrial appendage appeared to be free from any thrombus. The interatrial septum showed what seems to be possible patent page ovale, which was seen on color flow Doppler but not on contrast study. The aortic valve is thickened and calcified with evidence of moderate aortic stenosis. The mitral valve seems to be also thickened with moderate MR. There is moderate tricuspid regurgitation seen. CONCLUSION: 1. Normal left atrial appendage without any evidence of thrombus. 2. Mild biatrial enlargement. 3. Possible patent page ovale by color flow Doppler. 4. Severe cardiomyopathy with an ejection fraction of 25% and 30% and global hypokinesia. 5. Aortic sclerosis with moderate aortic stenosis. 6. Thickened mitral valve leaflets with moderate mitral regurgitation. 7. Thickened tricuspid valve leaflets with moderate tricuspid regurgitation. 8. Mild atherosclerosis plaque was seen in the descending thoracic aorta POSTPROCEDURE MANAGEMENT: Proceeding with a cardioversion.
[2016-06-23 11:57] VITALS: BMI 29.2
[2016-06-23 12:55] VITALS: RESP 18
[2016-06-23] MEDS: SODIUM CHLORIDE 0.9% 1,000 ML IV SCH (14:32)
[2016-06-23] MEDS: PSYLLIUM HUSK 100% 6 GM PACKET PO SCH (21:17)
[2016-06-23] MEDS: ATORVASTATIN 20 MG TAB PO SCH (21:17)
[2016-06-23] MEDS: METOPROLOL TARTRATE 12.5 MG TAB PO SCH (21:25)
[2016-06-24] MEDS: ALPRAZolam 0.25 MG TAB PO PRN (04:01)
[2016-06-24 04:20] VITALS: TEMP 97.1
[2016-06-24 06:28] LABS: INR 2.9 (<1.1); Prothrombin Time 28.4 sec (9.0-12.0)
[2016-06-24] MEDS: PANTOPRAZOLE 40 MG TABLET PO SCH (06:49)
--- NOTE | 2016-06-24 07:51 | P.PN ---
Progress Note - Text The patient is a 75-year-old gentleman who presented 3 days previous with increasing shortness of breath and acute on chronic congestive heart failure with diastolic and systolic dysfunction and was also found to be in atrial fibrillation with a rapid ventricular response. Patient has responded clinically to IV Lasix along with continuing his beta blockers and jonatan inhibitors. A transesophageal echo was performed and subsequently cardioversion yesterday. Today he denies any unusual shortness of breath or chest pain. Vital signs reveal temperature 97.1 with a pulse of 58 and respirations 18. Blood pressure 117/56 and he is 97% saturated on room air. Lung and heart exam was clear and regular this morning. No unusual edema. No focal neurological deficits. Laboratory: INR was 3.5 yesterday and is down to 2.9 this morning as yesterday's Coumadin was held. Impressions and plans: Will wait today to see if cardiology has any further plans. They will evaluate for patient's home medications to be continued and if any new medications for the patient. Patient will be seen in my office this coming Wednesday. Patient to have repeat INRs done as outpatient as he has done previously. Likely discharge home today if okay with cardiology as discussed with patient and nursing staff.
[2016-06-24] MEDS: METOPROLOL TARTRATE 12.5 MG TAB PO SCH (08:46)
[2016-06-24] MEDS: FLECAINIDE 50 MG TAB PO SCH (08:47)
[2016-06-24] MEDS: LISINOPRIL 10 MG TAB PO SCH (08:47)
[2016-06-24] MEDS: ASPIRIN 81 MG CHEW PO SCH (08:47)
[2016-06-24 09:16] VITALS: BP 127/59; PULSE 60
--- NOTE | 2016-06-24 10:34 | P.PN ---
Subjective Principal diagnosis: Sergio león This is a pleasant 75-year-old gentleman who follows regularly with Dr. Karley Storm in the office. He has a known history of paroxysmal atrial fibrillation, hypertension, hyperlipidemia, patient also has had 2 prior cardioversions performed in the past, most recent one was performed in February 2015. He presents to the hospital with symptoms of exertional shortness of breath for the past couple of weeks, he also states that he has noticed some increase in his abdominal girth and bilateral leg swelling in the past few days. Positive dry hacking cough. Denies fever or chills. On presentation here patient was found to be in atrial fibrillation with a rapid ventricular response, right bundle branch block pattern. Patient underwent a transesophageal echocardiographic study and elective cardioversion yesterday. He remains in normal sinus rhythm today. He has been up ambulating without any difficulty. Objective - Vital Signs Vital signs: Vital Signs Temp 97.1 F L 06/24/16 04:00 Pulse 60 06/24/16 08:00 Resp 18 06/24/16 08:00 BP 127/59 06/24/16 08:00 Pulse Ox 96 06/24/16 08:00 Intake & Output 06/23/16 06/24/16 06/24/16 18:59 06:59 18:59 Intake Total 780 Output Total 950 2850 Balance -170 -2850 Weight 98 kg 94.302 kg Intake: IV 600 Oral 180 Output: Urine 950 2850 Other: Voiding Method Toilet Urinal # Voids 1 - Exam PHYSICAL EXAMINATION: HEENT: Head is atraumatic, normocephalic. Pupils equal, round. Neck is supple. There is no elevated jugular venous pressure. HEART EXAMINATION: Heart S1 and S2 normal systolic ejection murmur is heard. CHEST EXAMINATION: Lungs Reveal some fine expiratory wheezes with mild diminished air entry to the bases. ABDOMEN: Soft, nontender. Bowel sounds are heard. No organomegaly noted. EXTREMITIES: 2+ peripheral pulses with trace evidence of peripheral edema and no calf tenderness noted. NEUROLOGIC patient is awake, alert and oriented -3. - Labs CBC & Chem 7: 06/21/16 14:54 06/23/16 06:40 Labs: Abnormal Lab Results - Last 24 Hours (Table) 06/24/16 Range/Units 05:27 PT 28.4 H (9.0-12.0) sec Assessment and Plan Plan: Assessment and plan #1 atrial fibrillation, paroxysmal, with rapid ventricular response #2 history of paroxysmal atrial fibrillation with prior cardioversions, on Coumadin for anticoagulation #3 diastolic congestive heart failure acute on chronic #4 hypertension # 5 hyperlipidemia #6 moderate aortic stenosis, most recent echocardiogram was performed in December 2014 which revealed mild to moderate aortic stenosis with an ejection fraction of 60%. #7 status post transesophageal echocardiographic study with elective cardioversion Plan Patient may be able to be discharged home today. Follow-up appointment will be made with Dr. Karley Storm in the office post discharge. DNP note has been reviewed, I agree with a documented findings and plan of care. Patient was seen and examined.
[2016-06-24] MEDS: FUROSEMIDE 10 MG/ML 4 ML VIAL IV SCH (10:56)
--- NOTE | 2016-06-25 10:35 | DS ---
DATE OF ADMISSION: 06/21/2016 DATE OF DISCHARGE: 06/24/2016 Mr. Bazan presented to the emergency room on June 21. He is a 75-year-old gentleman. He had been having increasing shortness of breath, dyspnea on exertion, PND, increase edema in the lower extremities and calf areas, was found on presentation to have a paroxysmal atrial fibrillation with a rapid ventricular response. Patient has had a past history of atrial fibrillation, having undergone cardioversion twice in the past and he does have underlying heart disease with hypertension and hyperlipidemia. Patient was treated with IV Lasix. Initial laboratory values revealed a white count of 10.3 with hemoglobin 12.6 and a platelet count of 301. BUN was 23 with creatinine 0.93, giving a GFR greater than 60, his liver function testing good. He is on Coumadin and INR was 2.5. Chest x-ray showed pulmonary fibrotic changes, small right pleural effusion and what appeared to be some element of congestive heart failure. EKG showed the atrial fibrillation with rapid ventricular response, also left anterior and right bundle branch block pattern. Troponin values initially 0.046 going up to 0.057. CK was 77. BNP was 7620. Once again, patient did diurese with Lasix. He was seen by Cardiology and is followed by them as an outpatient. He underwent transesophageal echocardiogram, report of which did not show any left atrial thrombus. The left ventricle was dilated. He did have severe cardiomyopathy with ejection fraction of 25% to 30% and global hypokinesis, aortic sclerosis with moderate aortic stenosis, mild biatrial enlargement. Patient underwent cardioversion subsequently and converted to sinus rhythm with 360 joules with a third attempt. He did have some mild bradycardia post-conversion. At this point, though, his symptomatology improved the following day. Plans are to discharge to home. Medications will include his: 1. Aspirin 81 mg daily. 2. Metoprolol 12.5 twice a day. 3. Xanax 0.25 three times a day p.r.n. for anxiety. 4. Vitamin C, he takes 500 mg. 5. Caltrate 600 calcium and vitamin D chewable daily. 6. Vitamin B12 two hundred, fifty mcg daily. 7. Enalapril 10 mg daily. 8. Fish oil 1400 mg once a day at bedtime. 9. Flecainide 100 mg twice a day. 10. He takes a multiple vitamin daily. 11. Omeprazole 20 mg daily. 12. Zocor 40 mg at bedtime. 13. Warfarin 2.5 mg on Wednesday, Wednesday and Wednesday and 5 mg all other days. He does get his INR's checked at cardiology and was recommended to have it checked next week. FINAL DISCHARGE DIAGNOSES: 1. Acute congestive heart failure with systolic dysfunction, also associated with paroxysmal atrial tachycardia with a rapid ventricular response on presentation requiring transesophageal echo and cardioversion performed on this admission. 2. Patient also has underlying hypertension. 3. Hyperlipidemia. 4. Polyarthritis with degenerative joint disease. 5. History of prostate cancer, followed by local urologist. 6. History of previous smoking and element of chronic obstructive pulmonary disease. 7. Previous surgical history that includes a previous amputation of the right index finger and amputation in the past. At this point, once again follow up with myself during the week in the next few days. Follow up with Dr. Shane Storm over a 5 to 7 day period. Activities as tolerated without any heavy exertion or lifting type activities. Call the office if any concerns or problems or return to the emergency room if symptoms worsen. GAMA
== END 2016-06-24 12:01 | disposition home or self-care (01) | DRG 308 ==
LOC: EC 14:29 → 6SEL 16:18
PROVIDERS: ADMIT Internal Medicine; ATTEND Internal Medicine
PROC: 5A2204Z Restoration of Cardiac Rhythm, Single (ICD-10-PCS; principal; 2016-06-23 08:30)
DX: I48.0 Paroxysmal atrial fibrillation (principal); I50.23 Acute on chronic systolic (congestive) heart failure; I42.9 Cardiomyopathy, unspecified; I65.21 Occlusion and stenosis of right carotid artery; J44.9 Chronic obstructive pulmonary disease, unspecified; I11.0 Hypertensive heart disease with heart failure; I47.1 Supraventricular tachycardia; E66.9 Obesity, unspecified; I35.0 Nonrheumatic aortic (valve) stenosis; E78.5 Hyperlipidemia, unspecified; F41.9 Anxiety disorder, unspecified; I25.10 Atherosclerotic heart disease of native coronary artery without angina pectoris; I45.10 Unspecified right bundle-branch block; I70.0 Atherosclerosis of aorta; M13.0 Polyarthritis, unspecified; H26.9 Unspecified cataract; Z79.01 Long term (current) use of anticoagulants; Z79.899 Other long term (current) drug therapy; Z85.46 Personal history of malignant neoplasm of prostate; Z87.891 Personal history of nicotine dependence
CPT/HCPCS: 36415; 71020; 80048; 80053; 81003; 82550; 82553; 83735; 83880; 84100; 84439; 84443; 84484; 85025; 85610; 85730; 87086; 92960; 93005; 93306; 93312; 93320; 93325; 96374; 96375; 99152; 99291

== ENCOUNTER → 2018-04-27 | Outpatient (CLI) | payer MEDICARE, BC ==
[2018-04-27 10:51] LABS: Blood Urea Nitrogen 23 mg/dL (9-20)
--- NOTE | 2018-04-27 12:22 | CT ---
EXAMINATION TYPE: CT chest w con DATE OF EXAM: 04/27/2018 COMPARISON: Chest x-ray 04/14/2018 HISTORY: Follow up lung nodule. No complaints at time of scan CT DLP: 564.9 mGycm, Automated exposure control for dose reduction was used. CONTRAST: Performed injected with 100 mL of Isovue 300. TECHNIQUE: Axial images were obtained at 5 mm thick sections. Reconstructed images are reviewed on [employer] computer in the coronal plane. FINDINGS: Portion of the thyroid visualized is normal. No suspicious lung nodules or focal infiltrates are present. Attention is paid to the right lower rishi g field corresponding to the findings on the chest x-ray. There may be calcification within the costo chondral cartilage which may account for this finding. This could be a summation density with a vesse ls seen posteriorly, series 4 image 45. A suspicious nodule is not identified on the chest CT. No enlarged mediastinal or hilar adenopathy is evident. Scattered small lymph nodes are present. Th e ascending aorta diameter at the level of the main pulmonary artery is 3.6 cm. The main pulmonary a rtery diameter at the bifurcation is 3.[address] sections are obtained through the upper abdomen. Pancreas appears atrophic. No suspicious acute changes are evident. IMPRESSIONS: 1. No suspicious changes to correspond to density on the chest x-ray. 2. Normal CT chest.
== END | disposition home or self-care (01) ==
LOC: RADCTMAIN 09:34
PROVIDERS: ATTEND Internal Medicine
DX: R91.1 Solitary pulmonary nodule (principal)
CPT/HCPCS: 82565; 84520; 71260; 36415; Q9967

== ENCOUNTER → 2019-03-28 | Outpatient (CLI) | payer MEDICARE, BC ==
--- NOTE | 2019-03-28 14:31 | XR ---
Right knee HISTORY: Patellar fracture 4 views of the right knee No comparisons There is joint space loss with subchondral sclerosis and lucency, marginal spurring especially in the medial compartment. Suprapatellar increased density compatible joint effusion. Spurring also present at the patellofemoral joint. Bone mineralization is reduced. Mild varus deformity at the knee. Lucen cy present through the patella medially, no definite periostitis. There is soft tissue swelling. IMPRESSION: Patellar fracture, osteoarthritis.
== END | disposition home or self-care (01) ==
LOC: RADXRMAIN 14:02
PROVIDERS: ATTEND Orthopaedic Surgery
DX: S82.001D Unspecified fracture of right patella, subsequent encounter for closed fracture with routine healing (principal); M17.11 Unilateral primary osteoarthritis, right knee

== ENCOUNTER → 2021-02-20 | Outpatient (CLI) | payer MEDICARE, BC ==
[2021-02-20 09:56] LABS: Appearance,Urine Clear (Clear); Bilirubin,Urine Negative (Negative); Blood,Urine Negative (Negative); Color,Urine Yellow; Glucose,Urine (UA) Negative (Negative); Hyaline Casts,Urine 4 /lpf (0-2); Ketones,Urine Negative (Negative); Leukocyte Esterase,Urine Negative (Negative); Mucus,Urine Moderate /hpf; Nitrite,Urine Negative (Negative); Protein,Urine 1+ (Negative); RBC,Urine 9 /hpf (0-5); Specific Gravity,Urine 1.023 (1.001-1.035); Urobilinogen,Urine <2.0 mg/dL (<2.0); WBC,Urine 1 /hpf (0-5)
[2021-02-20 10:53] LABS: INR 2.1 (<1.2); Partial Thromboplastin Time 30.5 sec (22.0-30.0); Prothrombin Time 20.3 sec (9.0-12.0)
[2021-02-20 10:58] LABS: ALT 20 U/L (4-49); AST 29 U/L (17-59); African American GFR (CKD) >90 (>60 ml/min/1.73 sqM); Albumin 3.8 g/dL (3.5-5.0); Albumin/Globulin Ratio 1.1; Alkaline Phosphatase 87 U/L (38-126); Anion Gap 9 mmol/L; Bilirubin,Unconjugated 0.4 mg/dL (0.0-1.1); Blood Urea Nitrogen 17 mg/dL (9-20); Calcium 9.3 mg/dL (8.4-10.2); Carbon Dioxide 29 mmol/L (22-30); Chloride 103 mmol/L (98-107); Globulin 3.4 g/dL; Glucose 109 mg/dL (74-99); Magnesium 2.3 mg/dL (1.6-2.3); Non-African American GFR(CKD) 88 (>60 ml/min/1.73 sqM); Potassium 4.4 mmol/L (3.5-5.1); Sodium 141 mmol/L (137-145); Total Bilirubin 0.5 mg/dL (0.2-1.3); Total Protein 7.2 g/dL (6.3-8.2)
--- NOTE | 2021-02-20 13:30 | CT ---
EXAMINATION TYPE: CT TAVR Planning DATE OF EXAM: 02/20/2021 HISTORY: Abdominal pain and chest pain. TAVR planning. CT DLP: 2185 mGycm Automated Exposure Control for Dose Reduction was Utilized. CONTRAST: CT scan of the chest, abdomen and pelvis is performed with IV Contrast, patient injected with 125 mL of Isovue 370. COMPARISON: Outside CTA chest January 23, 2021 TECHNIQUE: Helical imaging obtained through the chest, abdomen and pelvis during arterial phase aleta davon administration of radiographic contrast intravenously. FINDINGS: See report from [facility] regarding preprocedural planning CHEST: Lower Neck and Thyroid: No significant findings Lungs: No significant findings Central Airway: No significant findings Pleura: No significant findings Pulmonary Arteries: No significant findings Heart and Pericardium: Mild cardiomegaly. Moderate left atrial dilatation. Mild to moderate calcifica tion at level of the aortic valve. Dual lead pacemaker with leads terminating in right atrium and rig ht ventricle. Lymph Nodes: Scattered prominent but subcentimeter mediastinal lymph nodes Mediastinum & Esophagus: No significant findings Other: Flame shaped subareolar gynecomastia bilaterally. ABDOMEN/PELVIS: Please note arterial phase of the imaging limits detailed evaluation of the solid abdominal organs. Liver: No significant findings Spleen: No significant findings Kidneys: No significant findings Adrenal Glands: No significant findings Pancreas: Mild to moderate generalized fat replaced atrophy Gallbladder: No significant findings Bowel and Mesentery: Scattered distal colonic diverticula Lymph Nodes: No significant findings Urinary Bladder: No significant findings Pelvic Organs: There are 3 gold therapy seeds in normal size prostate gland. Other: No significant findings Osseous structures: Straightening of the thoracolumbar spine on sagittal images. Multilevel disc spac e narrowing greatest at L2-L3 through the L4-L5 levels. Prominent anterior spurring L2-L3 level. Mode rate to severe axial joint space loss in both hips IMPRESSION: As above. No significant incidental finding noted.
--- NOTE | 2021-02-20 14:08 | US ---
EXAMINATION TYPE: US carotid duplex BILAT DATE OF EXAM: 02/20/2021 COMPARISON: NONE CLINICAL HISTORY: I35.1 Nonrheumatic aortic (valve) insufficiency. TVAR pre testing, no h/o stroke, l arge habitus EXAM MEASUREMENTS: RIGHT: Peak Systolic Velocity (PSV) cm/sec ----- Right CCA: 79.9 ----- Right ICA: 162.7 ----- Right ECA: 72.1 ICA/CCA ratio: 2.0 RIGHT: End Diastole cm/sec ----- Right CCA: 11.9 ----- Right ICA: 70.1 ----- Right ECA: 11.0 LEFT: Peak Systolic Velocity (PSV) cm/sec ----- Left CCA: 69.8 ----- Left ICA: 135.4 ----- Left ECA: 43.7 ICA/CCA ratio: 1.9 LEFT: End Diastole cm/sec ----- Left CCA: 18.3 ----- Left ICA: 46.1 ----- Left ECA: 6.3 VERTEBRALS (direction of flow): Right Vertebral: Antegrade Left Vertebral: Antegrade Rhythm: Arrhythmia Very hard patient to scan due to habitus and heavy breathing. Heterogenous plaque bilateral bulbs. Originally did not see flow within mid/dist Right ICA, but after further interrogation, was able to d oppler mid and dist rt ica and noted increased velocities at mid level. Grayscale, color Doppler, spectral Doppler imaging performed of the carotid arteries. Waveform analys is shows elevated peak systolic velocity in the proximal internal carotid artery on the right, ICA to CCA ratio is elevated, elevated end-diastolic velocity. There is spectral broadening, loss of the sy stolic window. 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 Arrhythmia is noted incidentally. Possible mild stenosis also of the internal carotid ar omid in the left. Consider MRA or CTA for better evaluation. Criteria for Assigning % of Stenosis / Diameter reduction (Estimation based on the indirect measurements of the internal carotid artery velocities (ICA PSV). 1. Normal (no stenosis)=ICA PSV < 125 cm/s: ratio < 2.0: ICA EDV<40 cm/s. 2. Less than 50% stenosis=ICA PSV < 125 cm/s: ratio < 2.0: ICA EDV<40 cm/s. 3. 50 to 69% stenosis=ICA PSV of 125 to 230 cm/s: ration 2.0 ? 4.0: ICA EDV 40-100 cm/s. 4. Greater than 70% stenosis to near occlusion= ICA PSV > 230 cm/s: ratio > 4.0: ICA EDV > 100 cm/s. 5. Near occlusion= ICA PSV velocities may be low or undetectable: variable ratio and ICA EDV. 6. Total occlusion=unable to detect flow.
[2021-02-20 15:02] LABS: Basophils # (A) 0.07 X 10*3/uL (0.00-0.10); Basophils % (A) 0.9 %; Eosinophils # (A) 0.34 X 10*3/uL (0.04-0.35); Eosinophils % (A) 4.3 %; HGB 13.1 g/dL (13.0-17.0); Lymphocytes # (A) 0.97 X 10*3/uL (0.90-5.00); Lymphocytes % (A) 12.3 %; MCH 30.2 pg (27.0-32.0); MCV 94.5 fL (80.0-97.0); Mean Platelet Volume 10.1 fL (9.5-12.2); Monocytes # (A) 1.09 X 10*3/uL (0.20-1.00); Monocytes % (A) 13.8 %; Neutrophils # (A) 5.38 X 10*3/uL (1.80-7.70); Neutrophils % (A) 68.3 %; Platelet Count 217 X 10*3/uL (140-440); RBC 4.34 X 10*6/uL (4.40-5.60); RDW 13.3 % (11.5-14.5); WBC 7.88 X 10*3/uL (4.50-10.00)
[2021-02-20 16:38] LABS: Hemoglobin A1C 6.3 % (4.0-6.0)
[2021-02-21 02:50] LABS: Chol/HDL Ratio 3.38; Cholesterol 132 mg/dL (0-200); LDL Cholesterol,Calculated 74.2 mg/dL (0.0-131.0)
== END | disposition home or self-care (01) ==
LOC: LABWHC1 09:13
PROVIDERS: ATTEND Thoracic Surgery (Cardiothoracic Vascular Surgery)
DX: Z01.810 Encounter for preprocedural cardiovascular examination (principal); I65.21 Occlusion and stenosis of right carotid artery; I35.1 Nonrheumatic aortic (valve) insufficiency; E87.8 Other disorders of electrolyte and fluid balance, not elsewhere classified; E07.9 Disorder of thyroid, unspecified; R35.0 Frequency of micturition; I35.0 Nonrheumatic aortic (valve) stenosis; E11.9 Type 2 diabetes mellitus without complications; N28.9 Disorder of kidney and ureter, unspecified; E78.5 Hyperlipidemia, unspecified; I45.10 Unspecified right bundle-branch block; I48.91 Unspecified atrial fibrillation; I44.4 Left anterior fascicular block; I45.2 Bifascicular block; R94.31 Abnormal electrocardiogram [ECG] [EKG]; R58 Hemorrhage, not elsewhere classified; Z79.899 Other long term (current) drug therapy
CPT/HCPCS: 94150; 83880; 80061; 80053; 84443; 82248; 83735; 85025; 85610; 85730; 81001; 87086; 83036; 93880; 71275; 74174; 93005; 36415; Q9967

== ENCOUNTER → 2021-08-14 | Outpatient (CLI) | payer MEDICARE, BC ==
--- NOTE | 2021-08-14 17:00 | ECHOF ---
Referral Reason:I35.8 AORTIC VALVE DISORDERS, I35.1 MEASUREMENTS -------- HEIGHT: 182.9 cm WEIGHT: 102.1 kg BP: RVIDd: 4.6 cm (< 3.3) IVSd: 1.5 cm (0.6 - 1.1) LVIDd: 5.7 cm (3.9 - 5.3) LVPWd: 1.7 cm (0.6 - 1.1) IVSs: 1.7 cm LVIDs: 4.6 cm LVPWs: 1.7 cm LA Diam: 5.4 cm (2.7 - 3.8) LAESV Index (A-L): 54.74 ml/m Ao Diam: 3.5 cm (2.0 - 3.7) AV Cusp: 0.9 cm (1.5 - 2.6) LA Diam: 6.1 cm (2.7 - 3.8) MV EXCURSION: 25.163 mm (> 18.000) MV EF SLOPE: 53 mm/s (70 - 150) EPSS: 1.4 cm AV maxP.27 mmHg AV meanP.23 mmHg AR PHT: 691 ms RAP: 5.00 mmHg RVSP: 39.88 mmHg FINDINGS -------- Atrial fibrillation. Paced rhythm. This was a technically good study. The left ventricular size is normal. There is mild concentric left ventricular hypertrophy. Overa ll left ventricular systolic function is mildly impaired with, an EF between 45 - 50 %. The right ventricle is normal in size. LA is severely dilated >40 ml/m2 The right atrial size is normal. There is mild aortic regurgitation. There is moderate aortic stenosis present. Peak/mean gradient across the Aortic Valve is 43.27mmHg / 26.23mmHg. Mild mitral annular calcification present. Mild mitral regurgitation is present. Mild tricuspid regurgitation present. There is mild pulmonary hypertension. The right ventricular systolic pressure, as measured by Doppler, is 39.88mmHg. Trace/mild (physiologic) pulmonic regurgitation. There is no pericardial effusion. CONCLUSIONS -------- 1. The left ventricular size is normal. 2. There is mild concentric left ventricular hypertrophy. 3. Overall left ventricular systolic function is mildly impaired with, an EF between 45 - 50 %. 4. The right ventricle is normal in size. 5. LA is severely dilated >40 ml/m2 6. The right atrial size is normal. 7. There is mild aortic regurgitation. 8. There is moderate aortic stenosis present. 9. Peak/mean gradient across the Aortic Valve is 43.27mmHg / 26.23mmHg. 10. Mild mitral annular calcification present. 11. Mild mitral regurgitation is present. 12. Mild tricuspid regurgitation present. 13. There is mild pulmonary hypertension. 14. The right ventricular systolic pressure, as measured by Doppler, is 39.88mmHg. 15. Trace/mild (physiologic) pulmonic regurgitation. 16. There is no pericardial effusion. FULL SERVICE VENDING DRIVER: Jenny Gordon RDCS
== END | disposition home or self-care (01) ==
LOC: RADECHMAIN 13:36
PROVIDERS: ATTEND Thoracic Surgery (Cardiothoracic Vascular Surgery)
DX: I08.8 Other rheumatic multiple valve diseases (principal); I27.20 Pulmonary hypertension, unspecified
CPT/HCPCS: 93306

== ENCOUNTER → 2023-06-11 | Day surgery (SDC) | payer MEDICARE, BC ==
[~2023-06-11] MED LIST: ALPRAZolam 0.25 MG TAB PO PRN; ALPRAZolam 0.5 MG TAB PO PRN; AMIODARONE 200 MG TAB PO STA; ASPIRIN 325 MG TAB PO ONE; BENZOCAINE SPRAY 1 CAN MUCOUS MEM ONE; HEPARIN SODIUM 1,000 UN/ML (10ML VL) IV ONE; HEPARIN SODIUM,PORCINE (1 ML) 2,500 UNIT in SODIUM CHLORIDE 0.9% 250 ML IRRIGATION PRN; HEPARIN SODIUM,PORCINE 10,000 UNIT in SODIUM CHLORIDE 0.9% 1,000 ML IRRIGATION PRN; IOPAMIDOL-370 100ML BTL INJ ONE; IV FLUID CONTINUATION 1,000 ML IV ONE; LIDOCAINE 1% INJ 10MG/ML (5 ML VIAL-PF) SQ ONE; METOPROLOL TARTRATE 50 MG TAB PO STA; MIDAZOLAM 2 MG/2 ML VIAL IVP ONE; NITROGLYCERIN SL TABS 0.4 MG TAB SUBLINGUAL PRN; SODIUM CHLORIDE 0.9% 1,000 ML in EMPTY BAG 1 BAG IV SCH; VERAPAMIL 2.5 MG/ML 2 ML AMP ONE; WARFARIN 7.5 MG TAB PO ONE; fentaNYL (PF) 50 MCG/ML 2 ML AMP IVP ONE; fentaNYL (PF) 50 MCG/ML 2 ML AMP ONE
[2023-06-11 08:43] LABS: Anisocytosis Slight; Basophils # (A) 0.1 k/uL (0-0.2); Basophils % (A) 1 %; Eosinophils # (A) 0.4 k/uL (0-0.7); Eosinophils % (A) 4 %; HCT 39.9 % (39.0-53.0); HGB 12.2 gm/dL (13.0-17.5); Hypochromasia Marked; Lymphocytes # (A) 1.7 k/uL (1.0-4.8); Lymphocytes % (A) 17 %; MCH 24.3 pg (25.0-35.0); MCHC 30.6 g/dL (31.0-37.0); MCV 79.5 fL (80.0-100.0); Mean Platelet Volume 7.5; Microcytosis Slight; Monocytes # (A) 1.1 k/uL (0-1.0); Monocytes % (A) 11 %; Neutrophils # (A) 6.5 k/uL (1.3-7.7); Neutrophils % (A) 64 %; Platelet Count 369 k/uL (150-450); RBC 5.03 m/uL (4.30-5.90); RDW 16.5 % (11.5-15.5); WBC 10.1 k/uL (3.8-10.6)
[2023-06-11 08:52] LABS: INR 1.2 (<1.2); Prothrombin Time 12.3 sec (10.0-12.5)
[2023-06-11 09:06] VITALS: RESP 16; TEMP 98.4
--- NOTE | 2023-06-11 12:35 | CC ---
CARDIAC CATHETERIZATION REPORT PROCEDURE PERFORMED: Coronary angiography. PERFORMED BY: Dr. Shane Storm. ANESTHESIA: Moderate conscious sedation time was 17 minutes. The patient was administered fentanyl and Versed during his transesophageal echo, which preceded this procedure, but he was not given any additional anesthesia, but his oxygen saturation, hemodynamics, and EKG were monitored closely. CLINICAL INFORMATION: Mr. Breezy Bazan is an 82-year-old gentleman with a history of hypertension, hyperlipidemia, chronic persistent atrial fibrillation with sick sinus syndrome and a dual-chamber permanent pacemaker. He also has a metastatic prostate CA, for which he is on hormone therapy and the disease is very stable. He was evaluated. He has significant aortic stenosis, was evaluated in the 2020 by Structural Heart Team, felt that he had moderate and advised medical therapy. His symptoms have worsened in terms of shortness of breath and functional capacity has decreased. His ejection fraction has also decreased from 45% to 50% down to 25% to 30%. Given the decreased ejection fraction, heart failure, and worsening aortic stenosis by echo, he was advised a transesophageal echo and coronary angiography after optimizing his heart failure. He underwent transesophageal echo prior to cardiac cath, which revealed severe aortic stenosis and ejection fraction in the 25% to 30% range, global decrease in contractility. PROCEDURE NOTE: Under local anesthesia and strict aseptic precautions, a 6-Chinese introducer was placed in the right radial artery. Using a JL3.5 and JR4 catheters, I performed coronary angiography, but did not cross the aortic valve. The catheter was taken out and TR band applied as per protocol. Saturation of fingers of the right hand was 97%. The patient tolerated the procedure well. CORONARY ANGIOGRAPHY FINDINGS: Right coronary artery: Large dominant vessel. No significant disease. Distally bifurcates into PDA and PLV. Supplies a sizable amount of myocardium. No significant disease in the dominant RCA or its branches. Left main coronary artery: Long patent vessel, free of significant disease. Bifurcates into LAD and circumflex. Left main itself has mild disease distally of about 10% or less. Left anterior descending coronary artery: Good caliber vessel extends along the anterior wall, gives off a good-sized septal and diagonal branch and after the diagonal branch, there is an eccentric 70% to 75% narrowing and this compared to the previous study from 2020 seems to be worse, it was about 50% to 60%, now it is about 70% to 75%. The stenosis is located after a good-sized septal and a large diagonal branch and the amount of myocardium supplied by it is moderate. Left posterior circumflex coronary artery: Technically, this is a nondominant vessel, fair caliber, fair distribution, minor irregularities, no significant disease. About 40% narrowing is noted in the midportion. FINAL IMPRESSION: This patient has a right-dominant system. No significant disease in RCA. Left main has minor irregularities. Circumflex has a 40% mid lesion. LAD in the midportion after a good-sized diagonal branch has a 70% to 75% eccentric narrowing at the bifurcation. I did not check LV pressures. RECOMMENDATIONS: I am recommending percutaneous aortic valve replacement for this patient due to asymptomatic aortic stenosis with heart failure. Following this, for the mid LAD lesion, it can be done subsequently in a staged fashion. The patient's symptoms are mostly related to aortic stenosis and heart failure, so therefore percutaneous aortic valve implant should be performed first. Discussed my thoughts in detail with the patient and family. I expect him to be discharged later on today. We will request a consult for the TAVR team. MMODL / IJN: [id number] /
--- NOTE | 2023-06-11 14:12 | P.TEE ---
Description of Procedure(s): Procedure performed: Transesophageal Echocardiogram with color flow doppler, pulsed wave doppler and continuous wave doppler, moderate conscious sedation Moderate conscious sedation: Moderate conscious sedation was supplied with direct supervision of myself using Versed and Fentanyl. Complications: none Indications: Aortic stenosis PROCEDURE: After the risks, benefits and alternatives of the above mentioned procedure was explained in detail with the patient, informed consent was obtained. Patient was brought to the lab in a fasting state. Patient was given IV Versed and Fentanyl for sedation. The throat was sprayed with Hurricane to anesthetize the throat. A lubricated Omni probe was then introduced into the esophagus and stomach and multiple views were obtained. 2D echo with color flow doppler, pulsed wave doppler and continuous wave doppler was utilized. Agitated saline bubbles were injected to assess for any intra-atrial shunt. The probe was then removed. Patient tolerated the procedure well. Patient was transferred to the post procedure area in stable and satisfactory condition. FINDINGS: 1. The aortic valve is tricuspid and severe aortic stenosis with aortic valve area 0.6 cm by planimetry. There is mild to moderate aortic regurgitation 2. The mitral valve appears be normal mild to moderate mitral regurgitation. 3. Tricuspid valve is normal with moderate tricuspid regurgitation. 4. The interatrial septum is intact. No evidence of PFO. 5. Left atrial appendage is free of clot. 6. Left ventricular ejection fraction 25-30% with global hypokinesis
[2023-06-11 19:55] VITALS: BP 95/53; PULSE 84
== END ==
LOC: CATHCVL 08:01
PROVIDERS: ATTEND Internal Medicine Interventional Cardiology
DX: I08.3 Combined rheumatic disorders of mitral, aortic and tricuspid valves (principal); I48.19 Other persistent atrial fibrillation; E78.5 Hyperlipidemia, unspecified; I11.0 Hypertensive heart disease with heart failure; I48.91 Unspecified atrial fibrillation; F17.210 Nicotine dependence, cigarettes, uncomplicated; Z96.89 Presence of other specified functional implants; Z79.82 Long term (current) use of aspirin; Z79.899 Other long term (current) drug therapy; Z85.46 Personal history of malignant neoplasm of prostate
CPT/HCPCS: 93312; 93320; 93325; 93454; 85025; 85610; 99152; C1769; C1894; J2250; J2001; J3010; J1644; Q9967

== ENCOUNTER → 2023-07-01 | Outpatient (CLI) | payer MEDICARE, BC ==
[2023-07-01 10:45] LABS: Anisocytosis Slight; Basophils # (A) 0.1 k/uL (0-0.2); Basophils % (A) 1 %; Eosinophils # (A) 0.4 k/uL (0-0.7); Eosinophils % (A) 4 %; HCT 39.1 % (39.0-53.0); HGB 11.9 gm/dL (13.0-17.5); Hypochromasia Marked; Lymphocytes # (A) 1.3 k/uL (1.0-4.8); Lymphocytes % (A) 15 %; MCH 24.2 pg (25.0-35.0); MCHC 30.4 g/dL (31.0-37.0); MCV 79.6 fL (80.0-100.0); Mean Platelet Volume 7.5; Microcytosis Slight; Monocytes # (A) 0.9 k/uL (0-1.0); Monocytes % (A) 10 %; Neutrophils % (A) 67 %; Platelet Count 342 k/uL (150-450); RDW 17.3 % (11.5-15.5)
[2023-07-01 10:51] LABS: INR 2.2 (<1.2); Partial Thromboplastin Time 31.5 sec (22.0-30.0); Prothrombin Time 21.6 sec (10.0-12.5)
[2023-07-01 10:52] LABS: Magnesium 2.2 mg/dL (1.6-2.3)
[2023-07-01 10:53] LABS: ALT 17 U/L (4-49); AST 30 U/L (17-59); African American GFR (CKD) >90 (>60 ml/min/1.73 sqM); Albumin 3.9 g/dL (3.5-5.0); Albumin/Globulin Ratio 1.1; Alkaline Phosphatase 104 U/L (38-126); Anion Gap 7 mmol/L; Blood Urea Nitrogen 28 mg/dL (9-20); Calcium 9.2 mg/dL (8.4-10.2); Carbon Dioxide 29 mmol/L (22-30); Chloride 106 mmol/L (98-107); Globulin 3.7 g/dL; Glucose 116 mg/dL (74-99); Non-African American GFR(CKD) 87 (>60 ml/min/1.73 sqM); Sodium 142 mmol/L (137-145); Total Bilirubin 0.5 mg/dL (0.2-1.3); Total Protein 7.6 g/dL (6.3-8.2)
[2023-07-01 11:02] LABS: NT-Pro-B-Type Natriuretic Pept 4790 pg/mL
--- NOTE | 2023-07-01 12:47 | US ---
EXAMINATION TYPE: US carotid duplex BILAT DATE OF EXAM: 07/01/2023 COMPARISON: US CLINICAL INDICATION: Male, 82 years old with history of I35.1 NONRHEUMATIC AORTIC (VALVE) INSUFFICIEN CY; Pre-OP TECHNIQUE: Carotid duplex ultrasound examination. Indirect Doppler criteria was utilized. FINDINGS: EXAM MEASUREMENTS: RIGHT: Peak Systolic Velocity (PSV) cm/sec ----- Right CCA: 53.8 ----- Right ICA: 141.5 ----- Right ECA: 68.6 ICA/CCA ratio: 2.6 RIGHT: End Diastole cm/sec ----- Right CCA: 14.0 ----- Right ICA: 44.6 ----- Right ECA: 0.0 LEFT: Peak Systolic Velocity (PSV) cm/sec ----- Left CCA: 43.3 ----- Left ICA: 113.4 ----- Left ECA: 52.9 ICA/CCA ratio: 2.6 LEFT: End Diastole cm/sec ----- Left CCA: 14.5 ----- Left ICA: 34.4 ----- Left ECA: 0.0 VERTEBRALS (direction of flow): Right Vertebral: Antegrade Left Vertebral: Antegrade Rhythm: Arrhythmia SECTION REPAIRER NOTES: Slightly elevated velocities right ICA, otherwise no significant stenosis seen IMPRESSION: 50-69% stenosis of the right carotid bifurcation and less than 50% stenosis of the left carotid bifur cation. Criteria for Assigning % of Stenosis / Diameter reduction (Estimation based on the indirect measurements of the internal carotid artery velocities (ICA PSV). 1. Normal (no stenosis)=ICA PSV < 125 cm/s: ratio < 2.0: ICA EDV<40 cm/s. 2. Less than 50% stenosis=ICA PSV < 125 cm/s: ratio < 2.0: ICA EDV<40 cm/s. 3. 50 to 69% stenosis=ICA PSV of 125 to 230 cm/s: ration 2.0 ? 4.0: ICA EDV 40-100 cm/s. 4. Greater than 70% stenosis to near occlusion= ICA PSV > 230 cm/s: ratio > 4.0: ICA EDV > 100 cm/s. 5. Near occlusion= ICA PSV velocities may be low or undetectable: variable ratio and ICA EDV. 6. Total occlusion=unable to detect flow.
--- NOTE | 2023-07-01 15:21 | CT ---
EXAMINATION TYPE: CT TAVR Planning DATE OF EXAM: 07/01/2023 COMPARISON: None HISTORY: TAVR planning CT DLP: 2268.3 mGycm Automated exposure control for dose reduction was used. Contrast: 125 mL Isovue-370 Technique: Gated imaging is performed. Images were obtained in the axial plane at 0.5 mm thick sectio ns. Reconstructed images were obtained 2 mm thick sections. FINDINGS: There is a three-vessel arch. Vascular calcifications in the aortic arch. Ascending thoracic aorta at the level of the main pulmonary artery is 3.6 cm. Main pulmonary artery bifurcation is 3.7 cm. Small mediastinal lymph nodes are present. No enlarged lymphadenopathy is evident. Coronary artery ca lcifications noted. Scoliosis within the lumbar spine. No aneurysmal dilatation of the somewhat tortuous abdominal aorta. Lung boggs appear clear. IMPRESSION: 1. CT FOR TAVR PLANNING
[2023-07-01 15:31] LABS: LDL Cholesterol,Calculated 83.8 mg/dL (0.0-131.0)
[2023-07-01 15:44] LABS: Appearance,Urine Clear (Clear); Bilirubin,Urine Negative (Negative); Blood,Urine Negative (Negative); Color,Urine Yellow (Yellow); Ketones,Urine Negative (Negative); Nitrite,Urine Negative (Negative); PH, Urine 7.5; Specific Gravity,Urine 1.009 (1.001-1.030); Urobilinogen,Urine 0.2 E.U./DL
[2023-07-01 16:26] LABS: Hepatitis A Antibody IgM Nonreactive; Hepatitis B Core IgM Nonreactive; Hepatitis B Surface Antigen Nonreactive; Hepatitis C IgG Antibody Nonreactive
== END | disposition home or self-care (01) ==
LOC: LABWHC1 09:34
PROVIDERS: ATTEND Thoracic Surgery (Cardiothoracic Vascular Surgery)
DX: Z01.818 Encounter for other preprocedural examination (principal); I35.1 Nonrheumatic aortic (valve) insufficiency; I35.0 Nonrheumatic aortic (valve) stenosis; E87.8 Other disorders of electrolyte and fluid balance, not elsewhere classified; E07.9 Disorder of thyroid, unspecified; E11.9 Type 2 diabetes mellitus without complications; N28.9 Disorder of kidney and ureter, unspecified; I48.91 Unspecified atrial fibrillation; I45.10 Unspecified right bundle-branch block; I44.4 Left anterior fascicular block; I45.2 Bifascicular block; I51.7 Cardiomegaly; I23.2 Ventricular septal defect as current complication following acute myocardial infarction; I65.23 Occlusion and stenosis of bilateral carotid arteries; E78.5 Hyperlipidemia, unspecified; R35.0 Frequency of micturition; R58 Hemorrhage, not elsewhere classified; Z79.01 Long term (current) use of anticoagulants; Z79.899 Other long term (current) drug therapy; R94.31 Abnormal electrocardiogram [ECG] [EKG]
CPT/HCPCS: 94150; 83880; 80061; 80053; 80074; 84443; 83735; 85025; 85610; 85730; 81003; 87086; 83036; 93880; 71275; 36415 ×2; 74174; 93005; Q9967

== ENCOUNTER → 2023-07-15 | Outpatient (CLI) | payer MEDICARE, BC ==
[2023-07-15 11:57] LABS: INR 1.8 (<1.2); Prothrombin Time 18.4 sec (10.0-12.5)
[2023-07-15 16:44] LABS: Basophils # (A) 0.07 X 10*3/uL (0.00-0.10); Basophils % (A) 0.8 %; Eosinophils # (A) 0.45 X 10*3/uL (0.04-0.35); Eosinophils % (A) 5.2 %; HCT 37.5 % (39.6-50.0); HGB 11.3 g/dL (13.0-17.0); Lymphocytes # (A) 1.39 X 10*3/uL (0.90-5.00); MCH 23.8 pg (27.0-32.0); MCHC 30.1 g/dL (32.0-37.0); MCV 78.9 FL (80.0-97.0); Mean Platelet Volume 9.4 FL (9.5-12.2); Monocytes # (A) 1.24 X 10*3/uL (0.20-1.00); Monocytes % (A) 14.3 %; NRBC Per 100 WBC 0 X 10*3/uL (0.00-0.01); Neutrophils # (A) 5.52 X 10*3/uL (1.80-7.70); Neutrophils % (A) 63.5 %; Platelet Count 275 X 10*3/uL (140-440); RBC 4.75 X 10*6/uL (4.40-5.60); WBC 8.69 X 10*3/uL (4.50-10.00)
[2023-07-15 16:58] LABS: ALT 13 U/L (10-49); AST 23 U/L (14-35); Albumin 3.8 g/dL (3.8-4.9); Albumin/Globulin Ratio 1.12 Ratio (1.60-3.17); Alkaline Phosphatase 82 U/L (41-126); Calcium 9.8 mg/dL (8.7-10.3); Carbon Dioxide 27.6 mmol/L (21.6-31.8); Chloride 102 mmol/L (96-109); Globulin 3.4 g/dL (1.6-3.3); Glucose 116 mg/dL (70-110); Sodium 141 mmol/L (135-145); Total Bilirubin 0.4 mg/dL (0.3-1.2); Total Protein 7.2 g/dL (6.2-8.2)
== END | disposition home or self-care (01) ==
LOC: LABWHC1 10:27
PROVIDERS: ATTEND Thoracic Surgery (Cardiothoracic Vascular Surgery)
DX: Z01.812 Encounter for preprocedural laboratory examination (principal); I35.0 Nonrheumatic aortic (valve) stenosis; I48.91 Unspecified atrial fibrillation; Z79.899 Other long term (current) drug therapy; Z79.01 Long term (current) use of anticoagulants
CPT/HCPCS: 36415; 80053; 85025; 85610; 85730; 86850; 86900; 86901

== ENCOUNTER 2023-07-21 08:49 | Inpatient (IN) | payer MEDICARE, BC ==
[2023-07-21] MEDS: SODIUM CHLORIDE 0.9% 1,000 ML IV ONE (09:15)
[2023-07-21 09:29] LABS: Glucose,Whole Blood 108 mg/dL (70-110)
[2023-07-21 09:45] LABS: INR 1.1 (<1.2); Prothrombin Time 12.1 sec (10.0-12.5)
[2023-07-21] MEDS: METOPROLOL TARTRATE 25 MG TAB PO ONE (09:47)
[2023-07-21] MEDS: LACTATED RINGERS 1,000 ML IV SCH ×2 (09:47→18:16)
[2023-07-21] MEDS: ATORVASTATIN 10 MG TAB PO ONE (09:47)
[2023-07-21] MEDS: ASPIRIN 325 MG TAB PO ONE (09:47)
[2023-07-21] MEDS: CLOPIDOGREL 75 MG TAB PO ONE (09:47)
[2023-07-21] MEDS ORDERED: SODIUM CHLORIDE 0.9% 500 ML 500 ML INTRAARTER PRN (10:00)
[2023-07-21] MEDS ORDERED: NITROGLYCERIN-D5W PMX 25 MG/250 ML BTL IV PRN (10:00)
[2023-07-21] MEDS ORDERED: ELECTROLYTE-A SOLUTION 1,000 ML with POTASSIUM CHLORIDE 100 MEQ, MAGNESIUM SULFATE 16 M... IV PRN (10:00)
[2023-07-21] MEDS ORDERED: PROTAMINE SULFATE 250 MG in EMPTY BAG 1 BAG IV PRN (10:00)
[2023-07-21] MEDS ORDERED: CLEVIDIPINE BUTYRATE 25 MG in EMPTY BAG 1 BAG IV PRN (10:00)
[2023-07-21] MEDS ORDERED: TRANEXAMIC ACID 2,000 MG in SODIUM CHLORIDE 0.9% 80 ML IV PRN (10:00)
[2023-07-21] MEDS ORDERED: INSULIN REGULAR 100 UNIT in SODIUM CHLORIDE 0.9% 100 ML IV PRN (10:00)
--- NOTE | 2023-07-21 13:04 | P.ANPRN ---
Procedure Note - Anesthesia - LUISA Intraop Pre Bypass LUISA Intraop - Anesthesia Indication: severe aortic stenosis for transcatheter aortic valve replacement Date of Procedure: 07/21/23 Pre-operative Diagnosis: severe aortic stenosis Post-operative Diagnosis: severe aortic stenosis s/p TAVR Surgeon: Valentin Florez Left Ventricle: ejection fraction 20-25%. Global hypokinesia seen. more inferior hypokinesia. Ejection Fraction: Other (decreased) Left Ventricle Hypertrophy: Yes R. Ventricle Function: Normal Aortic Valve: bicuspid aortic valve calcified. Peak gradient 48 mmHg mean gradient 28 mmHg. Aortic valve area 0.6cm2 Anatomy: Other (bicuspid) Aortic Stenosis: Severe Aortic Regurgitation: Moderate Mitral Stenosis: None Mitral Regurgitation: Moderate Tricuspid Stenosis: None Tricuspid Regurgitation: Moderate Pulmonic Stenosis: None R. Atrial Dilation: No R. Atrial PFO: No L. Atrial Dilation: No Aortic Dissection: No - LUISA Intraop Post Bypass LUISA Intraop Post Bypass Procedure Performed: transcatheter aortic valve replacement Ejection Fraction: Other (decreased 20-25%.) Regional Wall Motion Abnormalities: Other (global hypokinesis) R. Ventricle Function: Normal Aortic Valve: prosthetic aortic valve in situ. Appears to be seated well. Peak gradient across the valve 7 mmHg and a mean gradient across the valve 4 mmHg.No AI seen Mitral Valve: Unchanged Tricuspid: Unchanged Pulmonic: Unchanged Aortic Dissection: No
[2023-07-21] MEDS: IOPAMIDOL-370 100ML BTL INJ ONE (14:13)
--- NOTE | 2023-07-21 14:43 | P.OP ---
Date of Procedure: 07/21/23 Preoperative Diagnosis: Symptomatic calcific aortic stenosis, bicuspid valve Postoperative Diagnosis: Same Procedure(s) Performed: Percutaneous transfemoral transcatheter aortic valve replacement with 26 mm Kellogg Kalen 3 transcatheter valve prosthesis Implants: 26 mm Kellogg's Kalen 3 valve prosthesis Anesthesia: GETA Surgeon: Valentin Florez (Cardiovascular surgeon) Equipment Or Machinery Cleaner #1: Nathan Hansen (pathology secretary) Equipment Or Machinery Cleaner #2: Michael Chairez (nurse practitioner) Estimated Blood Loss (ml): 20 IV fluids (ml): 800 Pathology: none sent Condition: stable Disposition: PACU Indications for Procedure: 83-year-old male with symptomatic aortic stenosis. He was evaluated in the high risk valve clinic and felt to be most appropriate for transcatheter valve implantation. Echocardiography was consistent with bicuspid valve. Operative Findings: Valve was crossed easily. Gradient was measured at 35 mmHg mean. Valve was implanted with good depth. There was no leak visible on the LUISA at the completion of the procedure. Description of Procedure: Patient was brought to the catheterization laboratory and placed supine on the table. Gen. anesthesia was induced and a LUISA probe was placed. The anterior torso and bilateral groins were sterilely prepped and draped. Access was obtained in the left femoral artery and vein and the right femoral artery. The left femoral vein, a long 6-Cameroonian sheath was placed. The left femoral artery a long 6-Cameroonian sheath was advanced into the descending thoracic aorta. Through this a pigtail catheter was advanced and positioned in the right coronary sinus of Valsalva. The right femoral artery a 7-Cameroonian sheath was placed and then 2 Perclose devices were placed and a 9-Cameroonian sheath was placed. Transvenous pacer was advanced through the femoral venous sheath into the right ventricle and tested. Patient was systemically heparinized and then 9-Cameroonian sheath in t he right groin was upsized to a 14 Kellogg sheath over a stiff wire. The valve was then cross from the right femoral access and a pigtail catheter positioned in the apex of the ventricle. Transvalvular gradients were measured with results as above. Stiff wire was placed in the apex of the ventricle. We pre- but dilated the bicuspid valve with a 23 Trew balloon under rapid ventricular pacing without event. Stiff wire was maintained in the apex of the ventricle and the balloon catheter was exchanged for the valve delivery system. A 26 Kellogg Kalen 3 valve had been loaded on the back table and was brought up onto the field. It was appropriately prepped and prepared with an extra 2 mL of dilating fluid. It was advanced over the stiff wire through the right femoral access descending thoracic aorta. Balloon was pulled back into the stent and it was advanced and curved around the aortic arch and across the aortic valve. The pusher was then pulled back and it was appropriately positioned. Deployed under rapid ventricular pacing without incident. Delivery system was pulled back. LUISA demonstrated excellent function of the valve without evidence of leak. The valve delivery system was then removed. Heparin was reversed with protamine. A 14-Cameroonian sheath was removed from the right groin and the 2 Perclose devices were deployed with good hemostasis. Completion angiography was performed and demonstrated good flow without leak. Temporary pacer was removed and the left femoral sheaths were removed and hemostasis obtained. Patient was extubated and transferred to recovery in stable condition.
[2023-07-21] MEDS ORDERED: ONDANSETRON 4 MG/2 ML VIAL IVP PRN (14:48)
[2023-07-21] MEDS ORDERED: IPRATROPIUM-ALBUTEROL 3 ML NEB INHALATION PRN (14:48)
[2023-07-21] MEDS ORDERED: Magnesium Replacement Protocol 1 EACH MISC MISCELLANE PRN (14:48)
[2023-07-21] MEDS ORDERED: Potassium Replacement Protocol 1 EACH MISC MISCELLANE PRN (14:48)
[2023-07-21] MEDS ORDERED: ACETAMINOPHEN TAB 325 MG TAB PO PRN (14:48)
[2023-07-21 15:30] LABS: Glucose,Whole Blood 110 mg/dL (70-110)
[2023-07-21 15:55] LABS: Anisocytosis Slight; Basophils % (A) 1 %; Eosinophils # (A) 0.3 k/uL (0-0.7); Eosinophils % (A) 4 %; HCT 33.3 % (39.0-53.0); HGB 10.7 gm/dL (13.0-17.5); Hypochromasia Slight; Lymphocytes # (A) 1.1 k/uL (1.0-4.8); Lymphocytes % (A) 15 %; MCH 25.2 pg (25.0-35.0); MCV 78.5 fL (80.0-100.0); Mean Platelet Volume 7.5; Microcytosis Slight; Monocytes # (A) 0.8 k/uL (0-1.0); Monocytes % (A) 11 %; Neutrophils % (A) 67 %; Platelet Count 237 k/uL (150-450); RBC 4.24 m/uL (4.30-5.90); RDW 19.2 % (11.5-15.5); WBC 7.5 k/uL (3.8-10.6)
--- NOTE | 2023-07-21 16:21 | XR ---
EXAMINATION TYPE: XR chest 1V portable DATE OF EXAM: 07/21/2023 3:07 PM CLINICAL INDICATION:Male, 83 years old with history of Post Operative Cardiac Surgery; COMPARISON: Chest radiographs from 06/21/2016 TECHNIQUE: XR chest 1V portable Frontal view of the chest. FINDINGS: Lungs/Pleura: There is no evidence of pleural effusion, focal consolidation, or pneumothorax. Pulmonary vascularity: Pulmonary vascular congestion. Heart/mediastinum: Cardiomediastinal silhouette is enlarged and stable. Two lead cardiac conduction d evice overlying the left hemithorax with lead tips projecting over the right ventricle and right atri um. Musculoskeletal: No acute osseous pathology. IMPRESSION: Cardiomegaly and mild pulmonary vascular congestion. Correlate with BNP for congestive heart failure.
[2023-07-21 16:49] LABS: Ionized Calcium 4.9 mg/dL (4.5-5.3)
[2023-07-21 16:58] LABS: African American GFR (CKD) >90 (>60 ml/min/1.73 sqM); Anion Gap 3 mmol/L; Blood Urea Nitrogen 18 mg/dL (9-20); Calcium 8.7 mg/dL (8.4-10.2); Carbon Dioxide 27 mmol/L (22-30); Chloride 108 mmol/L (98-107); Glucose 101 mg/dL (74-99); Non-African American GFR(CKD) >90 (>60 ml/min/1.73 sqM); Potassium 4.2 mmol/L (3.5-5.1); Sodium 138 mmol/L (137-145)
[2023-07-21] MEDS: WARFARIN 2.5 MG TAB PO SCH (18:45)
[2023-07-21] MEDS: AMIODARONE 200 MG TAB PO SCH (20:23)
[2023-07-21] MEDS: ASPIRIN 81 MG PO SCH (20:23)
[2023-07-21] MEDS: LOSARTAN 25 MG TAB PO SCH (20:23)
[2023-07-21] MEDS: ATORVASTATIN 20 MG TAB PO SCH (20:23)
[2023-07-21] MEDS: METOPROLOL TARTRATE 50 MG TAB PO SCH (20:24)
[2023-07-21] MEDS: SENNOSIDES-DOCUSATE SODIUM 1 EACH TAB PO SCH (20:24)
[2023-07-21] MEDS: ALPRAZolam 0.25 MG TAB PO PRN (20:26)
--- NOTE | 2023-07-21 22:40 | P.OP ---
Description of Procedure: Transcatheter Aoritc Valve Replacement Operative report PROCEDURE PERFORMED: 1. Percutaneous Aortic Valve Implantation using a 26 mm Kalen S3 2. Transesophageal echocardiography (performed by anesthesia) 3. Ultrasound guided access and repair of right femoral artery access site by Perclose closure device. 4. Placement of temporary pacemaker wire. 5. Aortic root angiography 6. Pre BAV with a 23mm True balloon INDICATIONS: 1. 83 year-old with a history of severe symptomatic aortic valve stenosis. PERFORMING PHYSICIANS: 1. Nathan Hansen DO Interventional Cardiology 2. Valentin Florez MD, Cardiothoracic Surgeon. SEDATION: General anesthesia provided by anesthesia, see separate note APPROACH: Right femoral artery via percutaneous approach PROCEDURE DESCRIPTION: The patient was discussed at valve clinic with multidisciplinary approach with cardiothoracic surgeon as well as kiln door repairer and thought better treated with TAVR. Risks, benefits, and alternatives of the procedure had been explained to the patient who understood the risks and agreed to proceed. After consents were obtained, patient was brought to the transcatheter aortic valve implantation room in the cardiac [facility] and general anesthesia was provided by the anesthesiologist (see separate report). Once full body sterile prep was performed, left femoral venous access was obtained and a temporary pacemaker was placed given he had a previous PPM. Pacing threshholds were checked and deemed appropriate. Next the left femoral artery was accessed using a modified Seldinger technique, ultrasound guidance and micropuncture technique. A 6 Slovenian Rabi sheath was placed in the left femoral artery. Next, a 6-Slovenian pigtail catheter was advanced into the aorta and positioned in the aortic root, aortic root angiography was performed to determine optimal deployment angle. The right femoral artery was accessed using modified Seldinger technique, m icropuncture technique and under direct ultrasound guidance. Femoral angiogram was done showing access in the common femoral artery and a 6Fr sheath was placed. Next preclose technique was performed using 2 Perclose. Next a 0.035 Safari wire was placed in the Aorta via a pigtail catheter. Over that the arteriotomy was serially dilated and a 14 Fr Edroy sheath was placed. Next a 6F- AL1 catheter was advanced over a wire to the aortic root. A straight wire was advanced through the catheter and used to cross the severely stenotic valve. The AL1 was then exchanged for a 6Fr pigtail catheter and pressure measurements were obtained. The 0.035 Safari wire was then positioned in the apex. Pre balloon aortic valvuloplasty was performed with a 23mm True balloon. Next a 26 mm Kalen S3 was advanced. The valve was then positioned across the aortic valve and confirmed with aortic root angiography. The valve was positioned and implanted with balloon valvuloplasty with slow inflation and with rapid pacing with 26mm +2cc fluid in indiflator. The delivery system was withdrawn back into the arch and an aortic root injection in conjunction with LUIAS demonstrated a satisfactory result. There was no significant para valvular leak. There was no evidence of any other significant abnormalities. The preclose Perclose was then deployed in the right femoral artery and hemostasis was achieved. The pigtail was then advanced to the level of the iliac bifurcation via the left femoral access. Femoral angiogram was performed that showed no contrast leak. The left femoral angiogram demonstrated an arteriotomy in the common femoral artery and this was repaired using a 6F angioseal device with complete hemostasis. The temporary venous pacemaker was pulled and left femoral venous pressure was held. The patient was then transported to the cardiac unit in hemodynamically stable condition, requiring no pressor support. COMPLICATIONS: None CONCLUSION: 1. Implantaion of 26mm Kalen S3 transcatheter aortic valve via right femoral approach under LUISA and fluoro guidance with no mateusz-valvular aortic regurgitation. 2. Placement of temporary pacemaker wire 3. Aortic Root Aortogram. RECOMMENDATIONS: The patient will be monitored for hemodynamic and electrical stability.
[2023-07-22] MEDS: PANTOPRAZOLE 40 MG TABLET PO SCH (06:17)
--- NOTE | 2023-07-22 08:42 | XR ---
EXAMINATION TYPE: XR chest 1V portable DATE OF EXAM: 07/22/2023 7:05 AM CLINICAL INDICATION:Male, 83 years old with history of Post Operative Cardiac Surgery; [facility] COMPARISON: Chest radiographs from 07/21/2023 TECHNIQUE: XR chest 1V portable Frontal view of the chest. FINDINGS: Lungs/Pleura: There is no evidence of pleural effusion, focal consolidation, or pneumothorax. Pulmonary vascularity: Unremarkable. Heart/mediastinum: Cardiomediastinal silhouette is enlarged and stable. Atherosclerotic calcificatio ns are seen in the aorta. Two lead cardiac conduction device overlying the left hemithorax with lead tips projecting over the right ventricle and right atrium. Musculoskeletal: No acute osseous pathology. Other findings: None IMPRESSION: Low lung volumes with a generalized hazy appearance which could represent atelectasis versus pulmonar y edema correlate with serum BNP.
[2023-07-22] MEDS ORDERED: MAGNESIUM HYDROXIDE 2,400 MG/30 ML CUP PO PRN (09:00)
[2023-07-22 09:25] LABS: Anisocytosis Slight; Basophils % (A) 0 %; Eosinophils # (A) 0.1 k/uL (0-0.7); Eosinophils % (A) 1 %; HCT 36.1 % (39.0-53.0); HGB 11.3 gm/dL (13.0-17.5); Hypochromasia Moderate; Lymphocytes # (A) 0.7 k/uL (1.0-4.8); Lymphocytes % (A) 6 %; MCH 24.8 pg (25.0-35.0); MCHC 31.1 g/dL (31.0-37.0); MCV 79.6 fL (80.0-100.0); Mean Platelet Volume 7.7; Microcytosis Slight; Monocytes # (A) 1.1 k/uL (0-1.0); Monocytes % (A) 9 %; Neutrophils % (A) 82 %; Platelet Count 241 k/uL (150-450); RBC 4.54 m/uL (4.30-5.90); RDW 18.7 % (11.5-15.5); WBC 12.2 k/uL (3.8-10.6)
[2023-07-22 09:26] LABS: INR 1.1 (<1.2)
[2023-07-22] MEDS: ASCORBIC ACID 500 MG TAB PO SCH (09:31)
[2023-07-22] MEDS: FUROSEMIDE 40 MG TAB PO SCH (09:32)
[2023-07-22] MEDS: CYANOCOBALAMIN 500 MCG TAB PO SCH (09:32)
[2023-07-22] MEDS: MULTIVITAMINS, THERA 1 EACH TAB PO SCH (09:32)
[2023-07-22] MEDS: CALCIUM CARB-VIT D 500 MG-5 MCG TAB PO SCH (09:32)
[2023-07-22 10:02] LABS: ALT 15 U/L (4-49); AST 30 U/L (17-59); African American GFR (CKD) >90 (>60 ml/min/1.73 sqM); Albumin 3.4 g/dL (3.5-5.0); Alkaline Phosphatase 89 U/L (38-126); Anion Gap 9 mmol/L; Blood Urea Nitrogen 16 mg/dL (9-20); Calcium 9.1 mg/dL (8.4-10.2); Carbon Dioxide 24 mmol/L (22-30); Chloride 104 mmol/L (98-107); Glucose 135 mg/dL (74-99); Non-African American GFR(CKD) >90 (>60 ml/min/1.73 sqM); Potassium 4.4 mmol/L (3.5-5.1); Sodium 137 mmol/L (137-145); Total Bilirubin 0.5 mg/dL (0.2-1.3); Total Protein 6.9 g/dL (6.3-8.2)
--- NOTE | 2023-07-22 10:04 | P.CONS ---
History of Present Illness - Reason for Consult Consult date: 07/21/23 Medical management Requesting physician: Nathan Hansen - Chief Complaint Severe aortic stenosis post TAVR - History of Present Illness 83-year-old male known to my office patient with known history of valvular heart disease, severe aortic stenosis, hypertension, hyperlipidemia, history of prostate cancer with a brachial therapy and hormonal therapy. History of sick sinus syndrome post pacemaker. Who has been seen by cardiology regularly last few years And has been watched for severe aortic stenosis has been affecting him physically quite a bit. Patient was referred for possible TAVR and was studied by cardiology with a heart catheter done showed mild coronary artery disease specially mild LAD conservative eccentric narrowing no intervention was r equired. Through his MUGA scan and echocardiogram he has slight decrease in ejection fraction also known to have A-fib with moderate mitral regurgitation with severe pulmonary hypertension with right-sided pressures of 60 mmHg. With the severity of his aortic stenosis valve to be 0.58 cm size. Patient was scheduled for elective TAVR today which was done by cardiology and cardiothoracic successfully with good result afterward. Patient was admitted to the floor was resting comfortably with no major complication. REVIEW OF SYSTEMS: CONSTITUTIONAL: Well-developed no acute respiratory distress. EYES: No icterus sclerae, no conjunctivitis. EARS, NOSE, MOUTH, THROAT, and FACE: No sore throat, lymphadenopathy, carotid bruits or deformity. RESPIRATORY: No shortness of breath cough or wheezes no hypoxia require any oxygen. CARDIOVASCULAR: No chest pain or palpitation PND orthopnea or angina. GASTROINTESTINAL: No Abd pain, Nausea or vomiting, no Diarrhea or constipation, No GI Bleed, no distention or masses. GENITOURINARY: Negative for Hematuria or UTI, no kidney stones. Mild BPH symptoms. INTEGUMENT/BREAST: Negative for any muscular injury with mild osteoarthritis.. HEMATOLOGIC/LYMPHATIC: Negative for bleed or purpura. MUSCULOSKELTAL: Negative for Myalgia or arthralgia. NEURLOGICAL: No LOC, Sz or syncope, blurred vision dizziness or abnormality.. BEHAVIORAL/PSYCH: Negative. ENDOCRINE: Negative. Physical examination: General Appearance: Alert, cooperative, no distress, mildly overweight. Neck HEENT: Supple, no lymphadenopathy, no thyroid enlargement, no carotid bruits. Lungs: Clear to auscultation without crackles or wheezes no rhonchi, no deformity. Chest Wall: Chest wall normal expansion with deep inspiration no tenderness and no deformity was found on exam, no costochondral pain or discomfort. Heart: Irregular rhythm and rate S1-S2 positive S3 minimal murmur in the apex area. Back: Symmetric, no curvature, ROM normal, no CVA tenderness. Abdomen: Soft, non-tender, bowel sounds active all four quadrants, no masses, no organomegaly. Extremities: Extremities normal, atraumatic, no cyanosis or edema. Pulses: 2+ and symmetric. Skin: Skin color, texture, tugor normal, no rashes or lesions. Neurologic: Alert oriented x3 cranial nerves II through XII intact, no motor deficit, no abnormal balance or gait. Assessment and plan: 1 severe aortic stenosis post TAVR successful with no complication the patient will be watched in the hospital overnight stable and doing well. 2 severe mitral regurgitation with moderate pulmonary hypertension: Continue medical management still on furosemide along with metoprolol and losartan. 3 atrial fibrillation: Has been on anticoagulation with warfarin along with amiodarone and metoprolol with pulse rates under control. 4 history of prostate cancer has been on Xtandi 160 mg daily resume medication. 5 cardiomyopathy: Ischemic versus valvular, has been doing well on losartan, furosemide and metoprolol watch patient for any fluid overload or worsening symptoms. 6 hyperlipidemia: Resume Zocor at 40 mg daily. 7 anticoagulation management: Patient has been off warfarin early was on heparin subcutaneous will resume warfarin watch his INR by tomorrow. GI prophylaxis: Patient will be continue on Protonix 40 mg with breakfast. CODE STATUS: Full code. Thank you Dr. Hansen for the consult for can be any further help to please let me know. Past Medical History Past Medical History: Atrial Fibrillation, Cancer, Heart Failure, COPD, Diabetes Mellitus, GERD/Reflux, Hyperlipidemia, Hypertension, Memory Impairment, Osteoarthritis (OA) Additional Past Medical History / Comment(s): SOB. PROSTATE CA, HORMONE & RADIATION TX 11-12yr ago, currently on xtandi for prostate cancer. hx RENAL CALCULI. CATARACTS. borderline diabetic History of Any Multi-Drug Resistant Organisms: None Reported Past Surgical History: Appendectomy, Cardiac Ablation, Heart Catheterization, Pacemaker Additional Past Surgical History / Comment(s): CARDIOVERSION X 3. PARTIAL AMPUTATION OF RIGHT POINTER FINGER; colonoscopy Past Anesthesia/Blood Transfusion Reactions: No Reported Reaction Type of Cardiac Device: Permanent Pacemaker Device Placement Date:: [address] 2017 Smoking Status: Former smoker, Second hand smoke exposure - Past Family History Brother(s) Additional Family Medical History / Comment(s): espohogeal ca Mother Additional Family Medical History / Comment(s): pancreatic ca Sister(s) Additional Family Medical History / Comment(s): sister lung ca Father Family Medical History: CVA/TIA Medications and Allergies Home Medications Medication Instructions Recorded Confirmed Type Simvastatin [Zocor] 40 mg PO HS 08/16/14 07/21/23 History Warfarin [Coumadin] 5 mg PO MOFR 08/16/14 07/21/23 History Ascorbic Acid [Vitamin C] 500 mg PO DAILY 02/01/15 07/21/23 History Ca/D3/Mag/Zinc/[place]/Terrence/Mgbor 1 tab PO DAILY 02/01/15 07/21/23 History [Caltrate 600-D3-Min Chew Tab] Cyanocobalamin [Vitamin B-12] 2,500 mcg PO DAILY 02/01/15 07/21/23 History Multivitamin [Men's Multi-Vitamin] 1 tab PO DAILY 02/01/15 07/21/23 History Omeprazole [PriLOSEC] 20 mg PO DAILY 02/01/15 07/21/23 History Warfarin [Coumadin] 2.5 mg PO SUTUWETHSA 06/21/16 07/21/23 History ALPRAZolam [Xanax] 0.25 mg PO TID PRN 06/09/23 07/21/23 History Amiodarone [Cordarone] 200 mg PO BID 06/09/23 07/21/23 History Aspirin 81 mg PO HS 06/09/23 07/21/23 History Enzalutamide [Xtandi] 160 mg PO 1300 06/09/23 07/21/23 History Furosemide [Lasix] 40 mg PO BID 06/09/23 07/21/23 History Losartan [Cozaar] 25 mg PO HS 06/09/23 07/21/23 History Metoprolol Tartrate [Lopressor] 100 mg PO BID 06/09/23 07/21/23 History Allergies Allergy/AdvReac Type Severity Reaction Status Date / Time No Known Allergies Allergy Verified 07/21/23 09:30 Physical Exam Vitals: Vital Signs Temp Pulse Pulse Resp BP BP BP 07/21/23 20:12 71 16 07/21/23 19:57 91 16 07/21/23 19:44 16 07/21/23 16:09 73 16 07/21/23 15:54 64 16 155/66 07/21/23 15:39 79 16 07/21/23 15:24 72 16 154/67 07/21/23 15:09 82 16 128/68 07/21/23 14:54 85 16 144/69 07/21/23 14:39 97.3 F L 88 16 145/73 07/21/23 09:28 97.5 F L 85 16 138/83 143/88 BP Pulse Ox 07/21/23 20:12 120/69 97 07/21/23 19:57 135/73 95 07/21/23 19:44 118/65 07/21/23 16:09 139/93 99 07/21/23 15:54 154/76 96 07/21/23 15:39 153/73 98 07/21/23 15:24 130/76 100 07/21/23 15:09 125/67 100 07/21/23 14:54 143/66 100 07/21/23 14:39 99 07/21/23 09:28 97 Intake and Output 07/21/23 07/21/23 07/21/23 06:59 14:59 22:59 Intake Total 650 180 Balance 650 180 Intake: IV 650 0 Oral 180 Other: Weight 95.9 kg Results CBC & Chem 7: 07/22/23 08:22 07/22/23 08:22 Labs: Abnormal Lab Results - Last 24 Hours (Table) 07/21/23 07/21/23 Range/Units 15:25 15:25 RBC 4.24 L (4.30-5.90) m/uL Hgb 10.7 L (13.0-17.5) gm/dL Hct 33.3 L (39.0-53.0) % MCV 78.5 L (80.0-100.0) fL RDW 19.2 H (11.5-15.5) % Chloride 108 H (98-107) mmol/L Creatinine 0.55 L (0.66-1.25) mg/dL Glucose 101 H (74-99) mg/dL
[2023-07-22 11:00] LABS: Ionized Calcium 4.9 mg/dL (4.5-5.3)
--- NOTE | 2023-07-22 11:44 | CA ---
Transthoracic Echo Report Name: Breezy Bazan Age: 83 Gender: M : 1940 Exam Date: 07/22/2023 09:05 Exam Location: [facility] Ht (in): 72 Wt (lb): 211 Ordering Physician: Taryn Naik Attending/Referring Phys: Coil Finisher Ml Wooten RDCS Procedure CPT: Indications: post TAVR Cardiac Hx: TAVR, PACEMAKER Technical Quality: Poor Contrast 1: Total Dose (mL): Contrast 2: Total Dose (mL): MEASUREMENTS (Male / Female) Normal Values 2D ECHO LV Diastolic Diameter PLAX 6.0 cm 4.2 - 5.9 / 3.9 - 5.3 cm LV Systolic Diameter PLAX 5.6 cm IVS Diastolic Thickness 1.1 cm 0.6 - 1.0 / 0.6 - 0.9 cm LVPW Diastolic Thickness 1.2 cm 0.6 - 1.0 / 0.6 - 0.9 cm LV Relative Wall Thickness 0.4 RV Internal Dim ED PLAX 3.9 cm LVOT Diameter 2.1 cm LA Systolic Diameter LX 4.1 cm 3.0 - 4.0 / 2.7 - 3.8 cm LV Diastolic Volume MOD 4C 116.4 cm??? LV Systolic Volume MOD 4C 74.0 cm??? LV Ejection Fraction MOD 4C 36.4 % LV Cardiac Index MOD 4C 1676.2 cm???/min???m??? LV Diastolic Length 4C 9.5 cm LV Systolic Length 4C 8.3 cm LV Diastolic Volume MOD 2C 143.1 cm??? LV Systolic Volume MOD 2C 103.5 cm??? LV Ejection Fraction MOD 2C 27.7 % LV Cardiac Index MOD 2C 1570.7 cm???/min???m??? LV Diastolic Length 2C 9.5 cm LV Systolic Length 2C 8.9 cm LA Volume 116.3 cm??? 18 - 58 / 22 - 52 cm??? LA Volume Index 52.3 cm???/m??? 16 - 28 cm???/m??? M-MODE Aortic Root Diameter MM 3.0 cm DOPPLER AV Peak Velocity 254.5 cm/s AV Peak Gradient 25.9 mmHg AV Mean Velocity 182.5 cm/s AV Mean Gradient 15.2 mmHg AV Velocity Time Integral 55.7 cm LVOT Peak Velocity 91.6 cm/s LVOT Peak Gradient 3.4 mmHg LVOT Velocity Time Integral 19.8 cm LVOT Stroke Volume 70.6 cm??? LVOT Stroke Volume Index 32.4 ml/m??? LVOT Cardiac Index 2793.3 cm???/min???m??? AV Area Cont Eq vti 1.3 cm??? AV Area Cont Eq pk 1.3 cm??? TR Peak Velocity 321.0 cm/s TR Peak Gradient 41.2 mmHg Right Ventricular Systolic Press 54.7 mmHg FINDINGS Left Ventricle Left ventricular ejection fraction is estimated at 30-35 %. Left ventricular cavity size normal. Mildly increased left ventricular diastolic diameter. Right Ventricle Moderate right ventricular dilatation. Severe pulmonary hypertension. Right ventricular systolic pressure estimated at 55 mm hg. Right Atrium Normal right atrial size. Left Atrium Severely increased left atrial volume. Moderately increased left atrial area. Mitral Valve Mitral valve thickened. Mild mitral annular calcification. Trace mitral regurgitation. Aortic Valve Normally functioning bioprosthetic aortic valve without stenosis with a peak velocity of 2.5 m/s, peak gradient 26 mmHg, mean gradient 15 mmHg, and estimated aortic valve area of 1.3 cm???. No aortic regurgitation. No paravalvular leak, no paravalvular aortic regurgitation. Tricuspid Valve Structurally normal tricuspid valve. Mild tricuspid regurgitation. Pulmonic Valve Structurally normal pulmonic valve. No pulmonic regurgitation. Pericardium No pericardial effusion. Aorta Normal size aortic root and proximal ascending aorta. CONCLUSIONS Mild increased left ventricular wall thickness Left ventricular ejection fraction 30-35% RVSP 55 Normal functioning bioprosthetic aortic valve No aortic regurgitation, no paravalvular aortic regurgitation Mild tricuspid regurgitation No pericardial effusion Previewed by: Dr. Nathan Hansen DO (Electronically Signed) Final Date: 22 July 2023 11:43
[2023-07-22] MEDS: NON FORMULARY DRUG (Enzalutamide [Xtandi] 40 MG Capsule) PO SCH (14:20)
--- NOTE | 2023-07-22 14:45 | P.PN ---
Subjective Progress Note Date: 07/22/23 Principal diagnosis: Severe symptomatic aortic valve stenosis, NYHA class II. Previous medical history of coronary artery disease, moderate mitral regurgitation, hypertension, hyperlipidemia, paroxysmal atrial fibrillation status post failed cardioversion and ablation, sick sinus syndrome status post [address] permanent pacemaker in 2017, prostate cancer status post hormone/radiation treatments, right internal carotid artery stenosis 50 to 69%, previous tobacco dependence with moderate COPD POD #1 percutaneous aortic valve implantation using a 26 mm RADHA S3, transesophageal echocardiography performed by anesthesia, ultrasound-guided access and repair of right femoral artery access site by Perclose closure device, placement of temporary pacemaker wire, aortic root angiography, pre-BAV with a 23 mm true balloon The patient was seen and examined several times today sitting as well as standing on the cardiac stepdown unit in no acute distress. Does state shortnes s of breath has improved significantly. Patient did have difficulty with completion of voiding this morning which has since resolved. He does complain of being a bit unsteady on his feet and was seen by physical therapy. Recommendations were made for home with home care versus subacute rehab, patient and would like the patient to go home with home care although would prefer he waits till tomorrow. He is doing well ambulating with a walker which he does have at home. No other new concerns. Objective - Vital Signs Vital signs: Vital Signs Temp 97.5 F L 07/22/23 08:45 Pulse 72 07/22/23 12:00 Resp 18 07/22/23 12:00 BP 132/66 07/22/23 12:00 Pulse Ox 99 07/22/23 12:00 FiO2 Intake & Output 07/21/23 07/22/23 07/22/23 18:59 06:59 18:59 Intake Total 830 290 358 Output Total 600 750 Balance 830 -310 -392 Weight 95.9 kg Intake: IV 650 Intake, IV Titration 50 Amount ceFAZolin 2 gm In Sodium 50 Chloride 0.9% 50 ml @ 100 mls/hr IVPB ONCE ONE Rx# :[id number] Oral 180 240 358 Output: Urine 600 750 Straight 500 Other: Voiding Method Toilet Toilet Urinal # Voids 2 - Exam CONSTITUTIONAL: Appears comfortable, cooperative, no acute distress RESPIRATORY: Lungs sounds diminished bilaterally. Respirations even, nonlabored. Currently on room air with oxygen saturation 99%. Able to achieve 2000 mL on incentive spirometry. Strong cough. CARDIOVASCULAR: S1, S2 present, faint systolic murmur still present. Irregular rate and rhythm, controlled atrial fibrillation on telemetry. Palpable peripheral pulses bilaterally. No edema present. No calf pain or tenderness noted GASTROINTESTINAL: Abdomen soft, nontender, nondistended. Active bowel sounds present 4 quadrants. Tolerating diet. Positive flatus GENITOURINARY: Continues to void INTEGUMENTARY: Skin is warm and dry, bilateral groins soft, nontender, no drainage present NEUROLOGIC: Cranial nerves II through XII intact MUSKULOSKELETAL: Able to move all extremities, strength equal bilaterally, gait mostly steady with walker assistance PSYCHIATRIC: Alert and oriented to person place and time, appropriate affect, intact judgment and insight - Allied health notes Allied health notes reviewed: nursing - Labs CBC & Chem 7: 07/22/23 08:22 07/22/23 08:22 Labs: Abnormal Lab Results - Last 24 Hours (Table) 07/21/23 07/21/23 07/22/23 Range/Units 15:25 15:25 08:22 WBC 12.2 H (3.8-10.6) k/uL RBC 4.24 L (4.30-5.90) m/uL Hgb 10.7 L 11.3 L (13.0-17.5) gm/dL Hct 33.3 L 36.1 L (39.0-53.0) % MCV 78.5 L 79.6 L (80.0-100.0) fL MCH 24.8 L (25.0-35.0) pg RDW 19.2 H 18.7 H (11.5-15.5) % Neutrophils # 10.0 H (1.3-7.7) k/uL Lymphocytes # 0.7 L (1.0-4.8) k/uL Monocytes # 1.1 H (0-1.0) k/uL Chloride 108 H (98-107) mmol/L Creatinine 0.55 L (0.66-1.25) mg/dL Glucose 101 H (74-99) mg/dL Albumin (3.5-5.0) g/dL 07/22/23 Range/Units 08:22 WBC (3.8-10.6) k/uL RBC (4.30-5.90) m/uL Hgb (13.0-17.5) gm/dL Hct (39.0-53.0) % MCV (80.0-100.0) fL MCH (25.0-35.0) pg RDW (11.5-15.5) % Neutrophils # (1.3-7.7) k/uL Lymphocytes # (1.0-4.8) k/uL Monocytes # (0-1.0) k/uL Chloride (98-107) mmol/L Creatinine 0.54 L (0.66-1.25) mg/dL Glucose 135 H (74-99) mg/dL Albumin 3.4 L (3.5-5.0) g/dL - Imaging and Cardiology Chest x-ray: report reviewed, image reviewed Assessment and Plan Assessment: Severe symptomatic aortic valve stenosis, NYHA class II, status post TAVR with 26 mm RADHA S3 Moderate mitral regurgitation Coronary artery disease Hypertension Hyperlipidemia Paroxysmal atrial fibrillation status post failed cardioversion and ablation Sick sinus syndrome status post [address] permanent pacemaker in 2017 Prostate cancer status post hormone/radiation treatments Right internal carotid artery stenosis 50 to 69% Previous tobacco dependence with moderate COPD Medical debility Plan: Continue to maximize medical therapy with aspirin, statin, beta-kanwal, ARB, Coumadin Physical therapy ordered to increase patient's strength and mobility Will repeat labs in the morning Increase activity as tolerated Plan is for discharge to home with home care tomorrow Follow-up TAVR appointments placed on discharge plan More recommendations to follow
[2023-07-22 15:04] VITALS: BMI 28.6
[2023-07-22] MEDS: TAMSULOSIN 0.4 MG CAP.ER.24H PO SCH (18:20)
--- NOTE | 2023-07-22 20:42 | P.PN ---
Subjective Progress Note Date: 07/22/23 - History of Present Illness 83-year-old male known to my office patient with known history of valvular heart disease, severe aortic stenosis, hypertension, hyperlipidemia, history of prostate cancer with a brachial therapy and hormonal therapy. History of sick sinus syndrome post pacemaker. Who has been seen by cardiology regularly last few years And has been watched for severe aortic stenosis has been affecting him physically quite a bit. Patient was referred for possible TAVR and was studied by cardiology with a heart catheter done showed mild coronary artery disease specially mild LAD conservative eccentric narrowing no intervention was required. Through his MUGA scan and echocardiogram he has slight decrease in ejection fraction also known to have A-fib with moderate mitral regurgitation with severe pulmonary hypertension with right-sided pressures of 60 mmHg. With the severity of his aortic stenosis valve to be 0.58 cm size. Patient was scheduled for elective TAVR today which was done by cardiology and cardiothoracic successfully with good result afterward. Patient was admitted to the floor was resting comfortably with no major complication. 07/22/2023: Patient had his TAVR successfully yesterday with no major complication resting in bed and in his recliner, had difficulty to void urination and has been having slight increase frequency and hesitancy with decreased urine volume. Also found difficult ambulating specially without help will require some physical therapy today. Other than this the night went well with no major complication. He might be discharged today otherwise we will do probably physical therapy and prepare for discharge tomorrow with home care. REVIEW OF SYSTEMS: CONSTITUTIONAL: Well-developed no acute respiratory distress. EYES: No icterus sclerae, no conjunctivitis. EARS, NOSE, MOUTH, THROAT, and FACE: No sore throat, lymphadenopathy, carotid bruits or deformity. RESPIRATORY: No shortness of breath cough or wheezes no hypoxia require any oxygen. CARDIOVASCULAR: No chest pain or palpitation PND orthopnea or angina. GASTROINTESTINAL: No Abd pain, Nausea or vomiting, no Diarrhea or constipation, No GI Bleed, no distention or masses. GENITOURINARY: Negative for Hematuria or UTI, no kidney stones. Mild BPH symptoms. INTEGUMENT/BREAST: Negative for any muscular injury with mild osteoarthritis.. HEMATOLOGIC/LYMPHATIC: Negative for bleed or purpura. MUSCULOSKELTAL: Negative for Myalgia or arthralgia. NEURLOGICAL: No LOC, Sz or syncope, blurred vision dizziness or abnormality.. BEHAVIORAL/PSYCH: Negative. ENDOCRINE: Negative. Physical examination: General Appearance: Alert, cooperative, no distress, mildly overweight. Neck HEENT: Supple, no lymphadenopathy, no thyroid enlargement, no carotid bruits. Lungs: Clear to auscultation without crackles or wheezes no rhonchi, no deformity. Chest Wall: Chest wall normal expansion with deep inspiration no tenderness and no deformity was found on exam, no costochondral pain or discomfort. Heart: Irregular rhythm and rate S1-S2 positive S3 minimal murmur in the apex area. Back: Symmetric, no curvature, ROM normal, no CVA tenderness. Abdomen: Soft, non-tender, bowel sounds active all four quadrants, no masses, no organomegaly. Extremities: Extremities normal, atraumatic, no cyanosis or edema. Pulses: 2+ and symmetric. Skin: Skin color, texture, tugor normal, no rashes or lesions. Neurologic: Alert oriented x3 cranial nerves II through XII intact, no motor deficit, no abnormal balance or gait. Assessment and plan: 1 severe aortic stenosis post TAVR successful with no complication doing well will consult physical therapy watch for any urinary retention. 2 severe mitral regurgitation with moderate pulmonary hypertension: Continue medical management still on furosemide along with metoprolol and losartan. 3 atrial fibrillation: Has been on anticoagulation with warfarin along with amiodarone and metoprolol with pulse rates under control. Back on his home meds we will recheck coagulation daily. 4 history of prostate cancer has been on Xtandi 160 mg daily resume medication. 5 cardiomyopathy: Ischemic versus valvular, has been doing well on losartan, furosemide and metoprolol watch patient for any fluid overload or worsening s ymptoms. 6 hyperlipidemia: Resume Zocor at 40 mg daily. 7 anticoagulation management: Patient has been off warfarin early was on heparin subcutaneous will resume warfarin watch his INR by tomorrow. GI prophylaxis: Patient will be continue on Protonix 40 mg with breakfast. BPH: Watch for any urinary retention will start patient on Flomax. Debility: Patient will require PT OT and probably home care with physical therapy. CODE STATUS: Full code. Objective - Vital Signs Vital signs: Vital Signs Temp 97.8 F 07/22/23 05:01 Pulse 64 07/22/23 05:01 Resp 16 07/22/23 05:01 BP 122/68 07/22/23 05:01 Pulse Ox 95 07/22/23 05:01 FiO2 Intake & Output 07/21/23 07/21/23 07/22/23 06:59 18:59 06:59 Intake Total 830 290 Output Total 600 Balance 830 -310 Weight 95.9 kg Intake: IV 650 Intake, IV Titration 50 Amount ceFAZolin 2 gm In Sodium 50 Chloride 0.9% 50 ml @ 100 mls/hr IVPB ONCE ONE Rx# :[id number] Oral 180 240 Output: Urine 600 Straight 500 Other: Voiding Method Toilet - Labs CBC & Chem 7: 07/22/23 08:22 07/22/23 08:22 Labs: Abnormal Lab Results - Last 24 Hours (Table) 07/21/23 07/21/23 Range/Units 15:25 15:25 RBC 4.24 L (4.30-5.90) m/uL Hgb 10.7 L (13.0-17.5) gm/dL Hct 33.3 L (39.0-53.0) % MCV 78.5 L (80.0-100.0) fL RDW 19.2 H (11.5-15.5) % Chloride 108 H (98-107) mmol/L Creatinine 0.55 L (0.66-1.25) mg/dL Glucose 101 H (74-99) mg/dL
[2023-07-23] MEDS: HALOPERIDOL LACTATE 5 MG/ML 1 ML VIAL IM STA (05:13)
[2023-07-23] MEDS: AMIODARONE 200 MG TAB PO SCH (08:32)
[2023-07-23 09:20] LABS: Anisocytosis Slight; HCT 34.6 % (39.0-53.0); HGB 10.5 gm/dL (13.0-17.5); Hypochromasia Moderate; MCH 24.2 pg (25.0-35.0); MCHC 30.3 g/dL (31.0-37.0); Mean Platelet Volume 7.9; Microcytosis Slight; Platelet Count 185 k/uL (150-450); RBC 4.32 m/uL (4.30-5.90); RDW 18.9 % (11.5-15.5)
[2023-07-23 09:21] LABS: INR 1.2 (<1.2); Prothrombin Time 12.4 sec (10.0-12.5)
[2023-07-23 09:47] LABS: African American GFR (CKD) >90 (>60 ml/min/1.73 sqM); Anion Gap 7 mmol/L; Blood Urea Nitrogen 15 mg/dL (9-20); Calcium 8.9 mg/dL (8.4-10.2); Carbon Dioxide 24 mmol/L (22-30); Chloride 108 mmol/L (98-107); Glucose 104 mg/dL (74-99); Magnesium 2.1 mg/dL (1.6-2.3); Non-African American GFR(CKD) >90 (>60 ml/min/1.73 sqM); Potassium 4.1 mmol/L (3.5-5.1); Sodium 139 mmol/L (137-145)
--- NOTE | 2023-07-23 09:52 | XR ---
EXAMINATION TYPE: XR chest 1V portable DATE OF EXAM: 07/23/2023 7:26 AM CLINICAL INDICATION:Male, 83 years old with history of Post Operative Cardiac Surgery; [facility] COMPARISON: Chest radiographs from 07/22/2023. TECHNIQUE: XR chest 1V portable Frontal view of the chest. FINDINGS: Lungs/Pleura: There is no evidence of pleural effusion, focal consolidation, or pneumothorax. Pulmonary vascularity: Pulmonary vascular congestion. Heart/mediastinum: Cardiomediastinal silhouette is enlarged and stable. Two lead cardiac conduction d evice overlying the left hemithorax with lead tips projecting over the right ventricle and right atri um. Musculoskeletal: No acute osseous pathology. Remote right-sided rib fractures. IMPRESSION: Cardiomegaly and mild pulmonary vascular congestion. Correlate with BNP for congestive heart failure.
[2023-07-23 10:57] VITALS: BP 112/71; PULSE 71; RESP 20; TEMP 97.8
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
--- NOTE | 2023-07-23 11:46 | P.DS ---
Providers Date of admission: 07/21/23 08:49 Expected date of discharge: 07/23/23 Attending physician: Nathan Hansen DO Consults: 07/14/23 12:40 Consult to Anesthesia Routine Consulting Provider: Anesthesia,Services Consult Reason/Comments: Cardiac Surgery Pre-Op 07/21/23 13:41 Consult Physician Routine Consulting Provider: Valentin Florez Consult Reason/Comments: post TAVR Do you want consulting provider notified?: Already Contacted 07/23/23 06:45 Consult Physician Routine Consulting Provider: Breezy Mendoza Consult Reason/Comments: known to you Do you want consulting provider notified?: Already Contacted Primary care physician: Breezy Mendoza [facility] Course: MEDICAL HISTORY: Severe symptomatic aortic valve stenosis, NYHA class II Moderate mitral regurgitation Coronary artery disease Hypertension Hyperlipidemia Paroxysmal atrial fibrillation status post failed cardioversion and ablation Sick sinus syndrome status post [place] permanent pacemaker in 2017 Prostate cancer status post hormone/radiation treatments 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 Mendoza for primary care and Dr. Storm for cardiology. He has a known history of severe aortic stenosis and has been symptomatic with increased exertional dyspnea as well as occasional chest heaviness, lightheadedness/dizziness, and lower extremity edema. He had been referred to structural heart clinic for evaluation for transcatheter aortic valve replacement after heart catheterization and transesophageal echocardiogram were completed. Echocardiography demonstrated reduced systolic function with EF 25- 30%, aortic valve area 0.6 cm with a peak/mean gradient 52/30 mmHg. Heart catheterization showed mid LAD stenosis 70-75%, which Dr. Storm felt could be tackled at a later date. After workup was completed STS risk score was calculated along with incremental risk and the patient was felt to be elevated risk for surgical aortic valve replacement, therefore transcatheter aortic valve replacement was recommended. The usual course of TAVR was discussed in detail the patient, risks and benefits were reviewed, shared decision making between cardiology, surgery, and the patient/family took place, and the patient consented to proceed with the procedure. HOSPITAL COURSE: The patient was brought to the hospital on 07/21/23, was taken to the extended stay area, prepared in the usual fashion, and subsequently taken to the cardiac catheterization laboratory where Dr. Hansen and Dr. Florez completed TAVR procedure under general anesthesia with fluoroscopy and LUISA. The valve was deployed under rapid ventricular pacing and proceeded without event. At the end of the procedure there was mean gradient 4 mmHg, hemodynamics were felt to be acceptable, and there was no evidence of significant perivalvular leak. Upon completion of the procedure the patient was extubated and was transferred to the recovery room, and eventually the cardiac stepdown unit where he was recovered and monitored hemodynamically. He did have some urine retention which resolved with Flomax. He also had some difficulty with agitation likely sundowning in the evenings, as well as occasional unsteady gait, although these issues had been occurring at home previously per his . His oxygen was titrated down, he was tolerating oral diet, his pain was controlled, follow-up TTE demonstrated reduced left ventricular systolic function with EF 30 to 35%, normally functioning bioprosthetic aortic valve without stenosis, no aortic regurgitation or paravalvular leak, and he was ready to be discharged to home with home care on postoperative day #2. He received written and verbal instruction regarding his medications, activity restrictions, signs and symptoms requiring physician notification, and follow-up appointments. Patient Condition at Discharge: Stable Plan - Discharge Summary Discharge Rx Participant: Yes New Discharge Prescriptions: New Tamsulosin [Flomax] 0.4 mg PO PC-SUPPER #30 cap Sennosides-Docusate Sodium [Senokot-S] 2 each PO HS PRN tab PRN Reason: Constipation Acetaminophen Tab [Tylenol] 650 mg PO Q4HR PRN tab PRN Reason: Fever And/ Or Mild Pain (1-3) Continue Warfarin [Coumadin] 5 mg PO MOFR Simvastatin [Zocor] 40 mg PO HS Omeprazole [PriLOSEC] 20 mg PO DAILY Multivitamin [Men's Multi-Vitamin] 1 tab PO DAILY Cyanocobalamin [Vitamin B-12] 2,500 mcg PO DAILY Ca/D3/Mag/Zinc/[place]/Terrence/Mgbor [Caltrate 600-D3-Min Chew Tab] 1 tab PO DAILY Ascorbic Acid [Vitamin C] 500 mg PO DAILY Warfarin [Coumadin] 2.5 mg PO SUTUWETHSA Metoprolol Tartrate [Lopressor] 100 mg PO BID Losartan [Cozaar] 25 mg PO HS Furosemide [Lasix] 40 mg PO BID Enzalutamide [Xtandi] 160 mg PO 1300 Aspirin 81 mg PO HS ALPRAZolam [Xanax] 0.25 mg PO TID PRN PRN Reason: Anxiety Changed Amiodarone [Cordarone] 200 mg PO DAILY #0 Discharge Medication List Simvastatin [Zocor] 40 mg PO HS 08/16/14 [History] Warfarin [Coumadin] 5 mg PO MOFR 08/16/14 [History] Ascorbic Acid [Vitamin C] 500 mg PO DAILY 02/01/15 [History] Ca/D3/Mag/Zinc/[place]/Terrence/Mgbor [Caltrate 600-D3-Min Chew Tab] 1 tab PO DAILY 02/01/15 [History] Cyanocobalamin [Vitamin B-12] 2,500 mcg PO DAILY 02/01/15 [History] Multivitamin [Men's Multi-Vitamin] 1 tab PO DAILY 02/01/15 [History] Omeprazole [PriLOSEC] 20 mg PO DAILY 02/01/15 [History] Warfarin [Coumadin] 2.5 mg PO SUTUWETHSA 06/21/16 [History] ALPRAZolam [Xanax] 0.25 mg PO TID PRN 06/09/23 [History] Aspirin 81 mg PO HS 06/09/23 [History] Enzalutamide [Xtandi] 160 mg PO 1300 06/09/23 [History] Furosemide [Lasix] 40 mg PO BID 06/09/23 [History] Losartan [Cozaar] 25 mg PO HS 06/09/23 [History] Metoprolol Tartrate [Lopressor] 100 mg PO BID 06/09/23 [History] Acetaminophen Tab [Tylenol] 650 mg PO Q4HR PRN tab 07/23/23 [Rx] Amiodarone [Cordarone] 200 mg PO DAILY #0 07/23/23 [Rx] Sennosides-Docusate Sodium [Senokot-S] 2 each PO HS PRN tab 07/23/23 [Rx] Tamsulosin [Flomax] 0.4 mg PO PC-SUPPER #30 cap 07/23/23 [Rx] Follow up Appointment(s)/Referral(s): Sameera Storm MD [STAFF PHYSICIAN] - 07/28/23 1:45 pm (Your appointment 07/28/23 is for a groin check. You have a 30-day post TAVR echo and appointment with Dr. Storm on 09/15/23 @1:45 pm. You also have a 1 year post TAVR echo and appointment with Dr. Storm on 06/26/24 @ 1:45 pm) Breezy Mendoza MD [Primary Care Provider] - 07/28/23 11:15 am (appt with [facility]) [facility]ural [facility] [NON-STAFF] - 09/15/23 1:15 pm (You have a 30-day follow-up TAVR clinic appointment at the valve clinic on 09/15/23 @1:15 pm. You also have a 1 year follow-up TAVR clinic appointment at the valve clinic on 06/26/24 @1:15 pm) [facility] Visiting Nurse, [NON-STAFF] - Ambulatory/Diagnostic Orders: Basic Metabolic Panel [LAB.AMB] Location: None Selected Basic Metabolic Panel [LAB.AMB] Location: None Selected Complete Blood Count w/diff [LAB.AMB] Location: None Selected Complete Blood Count w/diff [LAB.AMB] Location: None Selected Activity/Diet/Wound Care/Special Instructions: DISCHARGE INSTRUCTIONS: 1. No driving for 1 week, or until physician gives their ok. 2. No lifting, pushing, or pulling more than 5-10 pounds for 1 week. 3. Hold both groins when you cough or sneeze for the next 2 weeks. Bruising is common, but report increased swelling, pain or fever >101F 4. Shower daily. No pool, hot tub, or bathtub for 1 week 5. No powders, lotions, ointments on incisions. 6. No straining, including for bowel movements. Use stool softner if necessary 7. Stairs are not an issue. Go slowly, using handrail and take 1 step at a time. Ambulate several times daily 8. Continue pain control per as needed orders. 9. Take only the medications listed on your discharge form 10. Eat low salt (limited to 2 grams or 2000 milligrams) daily, avoid adding salt, avoid canned/processed foods 11. Take your weight daily in the morning and record, bring with you to your follow up appointments 12. Keep all follow up appointments. You will need a valve clinic appointment at 30 days and 1 year post procedure for follow up 13. You have been referred to and are expected to begin Cardiac Rehab in approximately 4 weeks. 14. You will need antibiotics prior to any dental work, including cleanings, and any surgeries to prevent Endocarditis (bacterial infection in your heart) For any questions or concerns please call your valve coordinators: Taryn or Sd @ Discharge Disposition: HOME WITH HOME HEALTH SERVICES
[2023-07-23] MEDS ORDERED: WARFARIN 5 MG TAB PO SCH (18:00)
== END 2023-07-23 14:02 | disposition home health service (06) | DRG 267 ==
LOC: 2ORMAIN 08:49 → 3SCARD 14:49
PROVIDERS: ADMIT Internal Medicine; ATTEND Internal Medicine
PROC: 5A1223Z Performance of Cardiac Pacing, Continuous (ICD-10-PCS; 2023-07-21)
PROC: B24BZZ4 Ultrasonography of Heart with Aorta, Transesophageal (ICD-10-PCS; 2023-07-21)
PROC: B3101ZZ Fluoroscopy of Thoracic Aorta using Low Osmolar Contrast (ICD-10-PCS; 2023-07-21)
PROC: 02RF38Z Replacement of Aortic Valve with Zooplastic Tissue, Percutaneous Approach (ICD-10-PCS; principal; 2023-07-21 12:30)
DX: Q23.1 Congenital insufficiency of aortic valve (principal); Z00.6 Encounter for examination for normal comparison and control in clinical research program; F05 Delirium due to known physiological condition; I49.5 Sick sinus syndrome; I27.20 Pulmonary hypertension, unspecified; I11.0 Hypertensive heart disease with heart failure; J44.9 Chronic obstructive pulmonary disease, unspecified; E11.9 Type 2 diabetes mellitus without complications; I48.0 Paroxysmal atrial fibrillation; I65.21 Occlusion and stenosis of right carotid artery; I25.10 Atherosclerotic heart disease of native coronary artery without angina pectoris; E78.5 Hyperlipidemia, unspecified; R33.9 Retention of urine, unspecified; R26.81 Unsteadiness on feet; N40.1 Benign prostatic hyperplasia with lower urinary tract symptoms; M19.90 Unspecified osteoarthritis, unspecified site; I25.5 Ischemic cardiomyopathy; K21.9 Gastro-esophageal reflux disease without esophagitis; Z77.22 Contact with and (suspected) exposure to environmental tobacco smoke (acute) (chronic); Z92.3 Personal history of irradiation; Z87.891 Personal history of nicotine dependence; Z95.0 Presence of cardiac pacemaker; Z79.01 Long term (current) use of anticoagulants; Z79.82 Long term (current) use of aspirin; Z85.46 Personal history of malignant neoplasm of prostate; Z89.021 Acquired absence of right finger(s); Z82.3 Family history of stroke; Z79.899 Other long term (current) drug therapy
CPT/HCPCS: 33361; 71045; 80048; 80053; 82330; 83735; 85025; 85027; 85610; 93306; 93312; 93320; 93325

== ENCOUNTER → 2024-01-11 | Outpatient (CLI) | payer MEDICARE, BC | END | disposition home or self-care (01) | LOC: LABPRL 13:42 | PROVIDERS: ATTEND Family Medicine | DX: C61 Malignant neoplasm of prostate (principal); I48.91 Unspecified atrial fibrillation | CPT/HCPCS: 80053; 85025 ==

== ENCOUNTER → 2024-04-06 | Outpatient (CLI) | payer MEDICARE, BC ==
--- NOTE | 2024-04-06 17:43 | PE ---
EXAMINATION TYPE: PET CT fusion skull to thigh DATE OF EXAM: 04/06/2024 CLINICAL INDICATION:Male, 83 years old with history of C61 PROSTATE CANCER; TECHNIQUE: Following the intravenous administration of 5.61 mCi of Ga-68 Illuccix (PSMA), whole bod y images are performed from the skull base to the midthigh. Images are reviewed on the computer in t he coronal, axial, and sagittal planes. Reconstructed rotating images are created on independent wor kstation and reviewed on the computer. A non-contrast CT is performed in conjunction with the PET s can. CT DLP: 740.46 mGycm, Automated exposure control for dose reduction was used. COMPARISON: CT 07/01/2023, PET/CT None, MRI: None FINDINGS: Mediastinal SUV mean is 1.8. Hepatic parenchyma SUV mean is 5.7. SKULL BASE AND NECK: Enlarged bilateral supraclavicular lymph nodes. They demonstrate radiotracer activity with max SUV on the left of 57.4 and a maximum SUV on the right of 31.5. CHEST, MEDIASTINUM, AND HILAR REGION: Enlarged mediastinal and bilateral hilar lymph nodes. Examples include a subcarinal enlarged lymph no de measuring up to 2.4 cm with a maximum SUV of 17.1. The right hilum demonstrates a maximum SUV of 1 8.2. The left hilum demonstrates a maximum SUV of 54.1. Enlarged paraesophageal lymph nodes measuring up to 1.2 cm with a maximum SUV of 13.2. ABDOMEN AND PELVIS: Small prostate gland with brachytherapy seeds identified. Demonstrates a maximum SUV of 25.3. There is a enlarged 1 cm lymph node within the rectovesicular space. This demonstrated his activity w ith a maximum SUV of 67.0. Mild prominent right iliac chain lymph node measuring up to 1.1 cm with a maximum SUV of 6.4. Multiple enlarged retroperitoneal periaortic lymph nodes with examples including a anterior periporta l measuring up to 1.9 cm with a maximum SUV of 53.1. Enlarged periportal lymph nodes with largest measuring up to 4.1 cm with a maximum SUV of 27.8. Enlarged gastrohepatic lymph nodes measuring up to 1.4 cm with a maximum SUV of 14.4. MUSCULOSKELETAL STRUCTURES: Diffuse innumerable mixed sclerotic lucent lesions throughout the osseous structures that all demonst rate FDG activity. Examples include the left posterior iliac bone with a maximum SUV of 46.9. L1 vertebral body with a maximum SUV of 81.4. Left ethmoid wing with a maximum SUV of 35.9. Right scapula with a maximum SUV of 27.9. T1 vertebral body with a maximum SUV of 42.8. OTHER CT: Bilateral aphakia. Bilateral carotid bulb calcifications. Bilateral shoulder arthropathy. A therosclerotic calcification of the aorta and its branches. Mild cardiomegaly. Postsurgical changes o f the aortic valve. Left chest wall dual lead conduction device terminating in the right atrium and r ight ventricle. Mild bilateral gynecomastia. Trace right pleural effusion. Layering hyperdense material within the gallbladder consistent with gallstones. Symmetrical thickenin g of both adrenal glands. Punctate nonobstructive right renal calculus. Small fat filled hernia. Ante rior abdominal wall fat string from possible from medication injection. Decompressed urinary bladder with Domínguez catheter in place. Surrounding inflammatory changes. May represent cystitis. Postsurgical fixation changes of the right proximal femur. Small fat filled right inguinal hernia. IMPRESSION: Diffuse prostate metastatic disease identified including within the osseous structures, lymphadenopat hy (supraclavicular, mediastinal, hilar, paraesophageal, periportal, retroperitoneal) and the prostat e gland as described above. [facility], , 04/06/2024 5:40 PM
== END | disposition home or self-care (01) ==
LOC: RADPETMAIN 15:20
PROVIDERS: ATTEND Internal Medicine
CPT/HCPCS: 78815